=== PATIENT | male | born 1990 | race Caucasian/White ===

== ENCOUNTER 2020-01-27 20:04 | Emergency (ER) | payer SELFPAY ==
[2020-01-27] MEDS ORDERED: IBUPROFEN 400 MG TAB ONE (20:38)
[2020-01-27] MEDS ORDERED: HYDROCODONE/APAP 5/325 MG TAB ONE (20:38)
--- NOTE | 2020-01-27 21:16 | RAD REPORT ---
EXAM DESCRIPTION: RAD - Finger-Thumb Right - 01/27/2020 9:04 pm CLINICAL HISTORY: SMASH INJURY COMPARISON: No comparisons FINDINGS: No acute fracture or subluxation seen. Mild soft tissue swelling is evident. Old traumatic deformity of the fourth metacarpal seen.
--- NOTE | 2020-01-27 21:23 | ER ---
Nurse's Notes [facility] Name: Tye Foreman Age: 29 yrs Sex: Male : 1990 Arrival Date: 01/27/2020 Time: 20:07 Bed 13 Private MD: Diagnosis: Contusion of finger without damage to nail-right middle Presentation: 01/26 20:09 Chief complaint: Patient states: Slammed 3rd digit of R hand in the drawer around 1700 ca1 today. Reports pain at the area. Coronavirus screen: The patient has NOT traveled to a country currently being monitored by the [facility] within the last 14 days. The patient has NOT had contact with any known and/or suspected case of coronavirus. Ebola Screen: Patient negative for fever greater than or equal to 101.5 degrees Fahrenheit, and additional compatible Ebola Virus Disease symptoms Patient denies exposure to infectious person. Patient denies travel to an Ebola-affected area in the 21 days before illness onset. No symptoms or risks identified at this time. Initial Sepsis Screen: Does the patient meet any 2 criteria? No. Patient's initial sepsis screen is negative. Does the patient have a suspected source of infection? No. Patient's initial sepsis screen is negative. Risk Assessment: Do you want to hurt yourself or someone else? Patient reports no desire to harm self or others. Onset of symptoms was January 27, 2020. 20:09 Method Of Arrival: Ambulatory ca1 20:09 Acuity: ADAM 4 ca1 Triage Assessment: 20:37 General: Appears in no apparent distress. Behavior is calm, cooperative. Pain: ls4 Complains of pain in dorsal aspect of middle phalanx of right middle finger and dorsal aspect of proximal phalanx of right middle finger Pain currently is 7 out of 10 on a pain scale. Musculoskeletal: Circulation, motion, and sensation intact. Capillary refill < 3 seconds, Range of motion: intact in all extremities, Swelling absent Reports pain in dorsal aspect of distal phalanx of right middle finger and dorsal aspect of middle phalanx of right middle finger. Injury Description: Bruise. Historical: - Allergies: 20:13 No Known Allergies; ca1 - Home Meds: 20:13 None [Active]; ca1 - PMHx: 20:13 None; ca1 - Immunization history:: Adult Immunizations up to date, Last tetanus immunization: < 5 years ago Flu vaccine is up to date. - Social history:: Smoking status: Patient reports the use of cigarette tobacco products, smokes one pack cigarettes per day. Screenin:39 Abuse screen: Denies threats or abuse. Denies injuries from another. Nutritional ls4 screening: No deficits noted. Tuberculosis screening: No symptoms or risk factors identified. Fall Risk None identified. Assessment: 20:39 General: SEE TRIAGE NOTE . ls4 21:40 Reassessment: Patient appears in no apparent distress at this time. Patient and/or ls4 family updated on plan of care and expected duration. Pain level reassessed. Patient is alert, oriented x 3, equal unlabored respirations, skin warm/dry/pink. Vital Signs: 20:09 BP 143 / 100; Pulse 80; Resp 16 S; Temp 97.8(TE); Pulse Ox 97% on R/A; Weight 90.72 kg ca1 (R); Height 6 ft. 7 in. (200.66 cm) (R); Pain 7/10; 22:06 BP 126 / 74; Pulse 74; Resp 14; Pulse Ox 100% on R/A; Pain 3/10; ls4 20:09 Body Mass Index 22.53 (90.72 kg, 200.66 cm) ca1 ED Course: 20:07 Patient arrived in ED. ag3 20:12 Triage completed. ca1 20:13 Arm band placed on right wrist. ca1 20:17 Gael Morales PA is PHCP. cp 20:17 Hamilton Naranjo MD is Attending Physician. cp 20:26 Dania Greer, KORINA is Primary Nurse. ls4 20:39 Patient has correct armband on for positive identification. Bed in low position. Call ls4 light in reach. Side rails up X 1. Ice pack to injury. 20:39 No provider procedures requiring assistance completed. Patient did not have IV access ls4 during this emergency room visit. 21:04 XRAY Finger-Thumb RIGHT: right middle finger In Process Unspecified. EDMS 22:13 Aluminum finger splint applied to dorsal aspect of middle phalanx of right middle ls4 finger and dorsal aspect of proximal phalanx of right middle finger. Administered Medications: 20:36 Drug: Ibuprofen 800 mg Route: PO; ls4 21:10 Follow up: Response: No adverse reaction; Marked relief of symptoms ls4 20:37 Drug: HYDROcodone-acetaminophen 5 mg-325 mg 1 tabs Route: PO; ls4 21:10 Follow up: Response: No adverse reaction; Marked relief of symptoms ls4 Outcome: 21:22 Discharge ordered by . cp 22:07 Discharged to home ambulatory, with family. ls4 22:07 Condition: stable 22:07 Discharge instructions given to patient, family, Instructed on discharge instructions, follow up and referral plans. medication usage, Demonstrated understanding of instructions, follow-up care, medications, Prescriptions given X 1. 22:30 Patient left the ED. lp1 Signatures: Dispatcher [employer] EDMS Maria Eugenia Webber RN RN lp1 Gael Morales PA PA cp Gomez, Alice ag3 Dania Greer, RN RN ls4 Thelma Saez RN RN ca1
--- NOTE | 2020-01-27 21:23 | EDPHYS ---
Physician Documentation [facility] Name: Tye Foreman Age: 29 yrs Sex: Male : 1990 Arrival Date: 01/27/2020 Time: 20:07 Bed 13 Private MD: ED Physician Hamilton Naranjo HPI: 01/26 20:30 This 29 yrs old Male presents to ER via Ambulatory with complaints of Finger cp Injury. 20:30 The patient or guardian reports injury, pain. The complaints affect the distal phalanx cp right middle finger. Context: resulted from a crush injury, by furniture or furniture accessory. Onset: The symptoms/episode began/occurred today. Associated signs and symptoms: Pertinent negatives: cyanosis distally, decreased sensation distally. 20:30 Severity of symptoms: in the emergency department the symptoms are unchanged, despite cp home interventions. Historical: - Allergies: 20:13 No Known Allergies; ca1 - Home Meds: 20:13 None [Active]; ca1 - PMHx: 20:13 None; ca1 - Immunization history:: Adult Immunizations up to date, Last tetanus immunization: < 5 years ago Flu vaccine is up to date. - Social history:: Smoking status: Patient reports the use of cigarette tobacco products, smokes one pack cigarettes per day. ROS: 20:35 MS/extremity: Positive for pain, swelling, tenderness, of the distal phalanx right cp middle finger, Negative for decreased range of motion, deformity. 20:35 Eyes: Negative for injury, pain, redness, and discharge. cp 20:35 Constitutional: Negative for fever. 20:35 ENT: Negative for drainage from ear(s), ear pain, sore throat, difficulty swallowing, difficulty handling secretions. 20:35 Cardiovascular: Negative for chest pain. 20:35 Respiratory: Negative for cough, shortness of breath. 20:35 Skin: Negative for rash. 20:35 Neuro: Negative for altered mental status, headache, weakness. 20:35 All other systems are negative. Exam: 20:45 Constitutional: The patient appears in no acute distress, alert, awake, well developed, cp well nourished. 20:45 Musculoskeletal/extremity: Extremities: grossly normal except: noted in the distal cp phalanx right middle finger: pain, swelling, tenderness, There is no evidence of deformity, erythema, ROM: full active range of motion, in the right middle finger, Perfusion: the extremity is normally perfused throughout, Sensation intact. Tendon exam: specific tendon testing normal through active and passive range of motion Nails: intact, no subungual hematoma noted. Vital Signs: 20:09 BP 143 / 100; Pulse 80; Resp 16 S; Temp 97.8(TE); Pulse Ox 97% on R/A; Weight 90.72 kg ca1 (R); Height 6 ft. 7 in. (200.66 cm) (R); Pain 7/10; 22:06 BP 126 / 74; Pulse 74; Resp 14; Pulse Ox 100% on R/A; Pain 3/10; ls4 20:09 Body Mass Index 22.53 (90.72 kg, 200.66 cm) ca1 Procedures: 21:45 Splinting: Splint applied to right middle finger using finger splint, applied by nurse. cp Examined by me, post splint application: neurovascular intact, Patient tolerated well. MDM: 20:17 Patient medically screened. cp 21:19 Test interpretation: by ED physician or midlevel provider: plain radiologic studies, cp xrays of right middle finger negative for fracture. 21:21 Data reviewed: vital signs, nurses notes, radiologic studies, plain films, and as a cp result, I will discharge patient. 01/26 20:26 Order name: XRAY Finger-Thumb RIGHT: right middle finger; Complete Time: 21:20 cp 01/26 21:20 Order name: Finger Splint; Complete Time: 22:06 cp Administered Medications: 20:36 Drug: Ibuprofen 800 mg Route: PO; ls4 21:10 Follow up: Response: No adverse reaction; Marked relief of symptoms ls4 20:37 Drug: HYDROcodone-acetaminophen 5 mg-325 mg 1 tabs Route: PO; ls4 21:10 Follow up: Response: No adverse reaction; Marked relief of symptoms ls4 Disposition: 21:30 Chart complete. cp 01/27 04:59 Co-signature as Attending Physician, Hamilton Naranjo MD I agree with the assessment and tw4 plan of care. Disposition: 01/27/20 21:22 Discharged to Home. Impression: Contusion of finger without damage to nail - right middle. - Condition is Stable. - Discharge Instructions: Hand Contusion. - Prescriptions for Ibuprofen 800 mg Oral Tablet - take 1 tablet by ORAL route every 8 hours As needed take with food; 30 tablet. - Medication Reconciliation Form, Thank You Letter, Antibiotic Education, Prescription Opioid Use form. - Follow up: Private Physician; When: 5 - 6 days; Reason: Worsening of condition. - Problem is new. - Symptoms have improved. Signatures: Dispatcher [employer] EDMS Maria Eugenia Webber RN RN lp1 Gael Morales PA PA cp Hamilton Naranjo MD MD tw4 Dania Greer RN RN ls4 Thelma Saez RN RN ca1 Corrections: (The following items were deleted from the chart) 01/26 22:30 21:22 01/27/2020 21:22 Discharged to Home. Impression: Contusion of finger without lp1 damage to nail - right middle. Condition is Stable. Forms are Medication Reconciliation Form, Thank You Letter, Antibiotic Education, Prescription Opioid Use. Follow up: Private Physician; When: 5 - 6 days; Reason: Worsening of condition. Problem is new. Symptoms have improved. cp
== END 2020-01-27 22:30 | disposition home or self-care (01) ==
LOC: ER 20:04
DX: S60.031A Contusion of right middle finger without damage to nail, initial encounter (principal); W23.0XXA Caught, crushed, jammed, or pinched between moving objects, initial encounter; Y93.9 Activity, unspecified; Y92.9 Unspecified place or not applicable; F17.210 Nicotine dependence, cigarettes, uncomplicated
CPT/HCPCS: 99284

== ENCOUNTER 2020-06-11 21:02 | Emergency (ER) | payer SELFPAY ==
--- OUTSIDE RECORDS SUMMARY | 2020-06-11 21:04 | XMS REPORT | Continuity of Care Document ---
:1990 Author Organization [facility] t Address [address] [place] [address] Care Team Providers Name Role Phone Sean Dominguez Attending Clinician Problems This patient has no known problems. Allergies, Adverse Reactions, Alerts This patient has no known allergies or adverse reactions. Medications This patient has no known medications. Procedures This patient has no known procedures. Encounters Start End Encounter Admission Attending Care Care Encounter Source Date/Time Date/Time Type Type Clinicians Facility Department ID 2020-03-20 2020-03-20 Emergency [place] [id number] 11:23:42 11:59:00 Denise Munoz [id number] Aaron [id number] Corinna [id number] Results This patient has no known results.
--- OUTSIDE RECORDS SUMMARY | 2020-06-11 21:05 | XMS REPORT | Summary of Care ---
:1990 Author Organization [facility] Address [address] [place] [id number] Care Team Providers Name Role Phone Pcp, Patient Does Not Have A Primary Care Provider +[id number] 0-0000 Reason for Visit Reason Comments Tooth Pain Auth/Cert Status Reason Specialty Diagnoses / Referred By Referred To Procedures Contact Contact Emergency Medicine Diagnoses [facility] [address] [place] [address] Fax: Encounter Details Date Type Department Care Team Description 03/20/2020 Emergency [facility]Emergency Denise Celeste, Dental abs cess (Primary Dx); Department EMNP Dentalgia [address] [place] [address] [address] [place] [address] [id number] [place], [place] [id number] Allergies No Known Allergiesdocumented as of this encounter (statuses as of 03/20/2020) Medications Medication Sig Dispensed Refills Start Date End Date Status penicillin v potassium Take 1 tablet 40 tablet 0 03/20/2020 Active 500 mg by mouth 4 tabletIndications: (four) times Dentalgia, Dental daily for 10 abscess days. chlorhexidine 0.12 % Swish and spit 473 mL 0 03/20/2020 Active mouthwashIndications: out 15 mL 2 Dentalgia, Dental (two) times abscess daily. ibuprofen 800 mg Take 1 tablet 30 tablet 0 03/20/2020 Active tabletIndications: by mouth every Dentalgia, Dental 8 (eight) hours abscess as needed for Pain (scale 4-6). documented as of this encounter (statuses as of 03/20/2020) Active Problems No known active problemsdocumented as of this encounter (statuses as of 03/20/2020) Social History Tobacco Use Types Packs/Day Years Used Date Never Assessed Sex Assigned at Date Recorded Not on file Job Start Date Occupation Industry Not on file Not on file Not on file Travel History Travel Start Travel End No recent travel history available. COVID-19 Exposure Response Date Recorded In the last month, have you been in contact with No / Unsure 03/20/2020 11:18 AM CDT someone who was confirmed or suspected to have Coronavirus / COVID-19? documented as of this encounter Last Filed Vital Signs Vital Sign Reading Time Taken Comments Blood Pressure 121/95 03/20/2020 11:20 AM CDT Pulse 77 03/20/2020 11:20 AM CDT Temperature 35.9 C (96.7 F) 03/20/2020 11:20 AM CDT Respiratory Rate 16 03/20/2020 11:20 AM CDT Oxygen Saturation 98% 03/20/2020 11:20 AM CDT Inhaled Oxygen Concentration - - Weight 90.7 kg (200 lb) 03/20/2020 11:20 AM CDT Height 203.2 cm (6' 8") 03/20/2020 11:20 AM CDT Body Mass Index 21.97 03/20/2020 11:20 AM CDT documented in this encounter Discharge Instructions Denise Blankenship EMNP - 03/20/2020NO LIFE-THREATENING FINDINGS ON TODAY'S EXAM. SPECIAL INSTRUCTIONS: 1. Warm salt water rinses 2. Take all antibiotics 3. May take 2 tylenol every 4 hours for pain 4. See attached information 5. You musk seek definitive care at dentist once infection resolves. FOLLOW-UP RECOMMENDATIONS: RECOMMEND FOLLOW-UP WITH A PRIMARY CARE PROVIDER OR SPECIALIST IN 2-5 DAYS, ESPECIALLY IF NO IMPROVEMENT IN SYMPTOMS. TO FOLLOW-UP WITHIN THE [facility], TRY THESE OPTIONS (CLINIC APPOINTMENTS AVAILABLE ON PCRM-YB-ICND BASIS): 1. SCHEDULE AN APPOINTMENT ONLINE AT [facility] 2. OR CALL THE [facility] ACCESS CENTER AT OR 3. OR CALL YOUR [facility] PHYSICIAN'S OFFICE DIRECTLY IF YOU ARE ALREADY AN ESTABLISHED [facility] PATIENT. OR, YOU MAY FOLLOW-UP WITH A PROVIDER OF YOUR CHOICE, SUCH : 1. A PHYSICIAN OF YOUR CHOICE 2. [facility], . LOCATIONS IN [facility] 3. [facility], [address] [place], [place]; [phone] RETURN TO ER FOR WORSENING OF SYMPTOMS. AttachmentsThe following attachments cannot be sent through Care Everywhere. Abscess, Dental (Ghanaian)Abscess, Antibiotic Treatment Only (Ghanaian)Penicillin V tablets (Ghanaian)Chlorhexidine oral rinse (Ghanaian)Ibuprofen tablets and capsules (Ghanaian)documented in this encounter Plan of Treatment Health Maintenance Due Date Last Done Comments VARICELLA VACCINES ( - 1992 2-dose childhood series) DTaP,Tdap,and Td Vaccines ( - 2002 Tdap) INFLUENZA VACCINE (Season Ended) 2020 PNEUMOCOCCAL 0-64 YEARS COMBINED Aged Out No longer eligible based on SERIES patient's age to complete this topic documented as of this encounter Results Not on filedocumented in this encounter Visit Diagnoses Diagnosis Dental abscess - Primary Periapical abscess without sinus Dentalgia Unspecified disorder of the teeth and aguilar pporting structures documented in this encounter
[2020-06-11 21:29] LABS: Absolute Lymphocytes (CBC) 1.3 K/uL (0.7-4.9); Basophils % 0.5 % (0-1.3); Hematocrit 43.5 % (39.6-49.0); Lymphocytes % 13.7 % (15.3-44.8); MPV 7.4 fL (7.6-11.3); RBC Red Blood Cell Count 4.52 M/uL (4.33-5.43)
[2020-06-11 21:43] LABS: Albumin 4.2 g/dL (3.4-5.0); Bilirubin Direct 0.3 mg/dL (0-0.2); Potassium 3.8 mmol/L (3.5-5.1); Protein, Total 7.2 g/dL (6.4-8.2)
--- NOTE | 2020-06-11 21:49 | ER ---
Nurse's Notes [facility] Name: Tye Foreman Age: 29 yrs Sex: Male : 1990 Arrival Date: 06/11/2020 Time: 21:04 Bed 8 Private MD: Diagnosis: Nausea and vomiting Presentation: 06/11 21:10 Chief complaint: Patient states: I started vomiting started 2 days ago and having on rr5 and off upper abdominal pain. denies diarrhea, fever. 21:10 Coronavirus screen: Client denies travel out of the [place] in the last 14 days. At this rr5 time, the client does not indicate any symptoms associated with coronavirus-19. Ebola Screen: Patient negative for fever greater than or equal to 101.5 degrees Fahrenheit, and additional compatible Ebola Virus Disease symptoms Patient denies exposure to infectious person. Patient denies travel to an Ebola-affected area in the 21 days before illness onset. Initial Sepsis Screen: Does the patient meet any 2 criteria? No. Patient's initial sepsis screen is negative. Does the patient have a suspected source of infection? No. Patient's initial sepsis screen is negative. Risk Assessment: Do you want to hurt yourself or someone else? Patient reports no desire to harm self or others. Onset of symptoms was June 09, 2020. 21:10 Method Of Arrival: Ambulatory rr5 21:10 Acuity: ADAM 3 rr5 Historical: - Allergies: 21:16 No Known Allergies; rr5 - Home Meds: 21:16 None [Active]; rr5 - PMHx: 21:16 None; rr5 - PSHx: 21:16 arm surgery; rr5 - Immunization history:: Adult Immunizations up to date. - Social history:: Smoking status: Patient reports the use of cigarette tobacco products, smokes one pack cigarettes per day. Reported history of juuling and/or vaping. Patient uses alcohol, on a daily basis. Patient/guardian denies using street drugs. Screenin:17 Abuse screen: Denies threats or abuse. Denies injuries from another. Nutritional rr5 screening: No deficits noted. Tuberculosis screening: No symptoms or risk factors identified. Fall Risk IV access (20 points). Total Son Fall Scale indicates No Risk (0-24 pts). Assessment: 21:17 General: Appears in no apparent distress. uncomfortable, Behavior is calm, cooperative, rr5 appropriate for age. Pain: Complains of pain in epigastric area Pain currently is 2 out of 10 on a pain scale. Quality of pain is described as aching, Pain began gradually, Is intermittent. Neuro: Level of Consciousness is awake, alert, obeys commands, Oriented to person, place, time, situation. Cardiovascular: Capillary refill < 3 seconds Patient's skin is warm and dry. Respiratory: Airway is patent Respiratory effort is even, unlabored, Respiratory pattern is regular, symmetrical. GI: Abdomen is flat, Reports upper abdominal pain, nausea, vomiting, Patient currently denies diarrhea. : No signs and/or symptoms were reported regarding the genitourinary system. EENT: No signs and/or symptoms were reported regarding the EENT system. Derm: Skin is intact, is healthy with good turgor, Skin temperature is warm. Musculoskeletal: Circulation, motion, and sensation intact. Capillary refill < 3 seconds. Vital Signs: 21:10 BP 146 / 102; Pulse 89; Resp 18; Temp 98.5; Pulse Ox 98% ; Weight 88.45 kg; Height 6 rr5 ft. 8 in. (203.20 cm); Pain 2/10; 21:59 BP 142 / 84; Pulse 86; Resp 17; Temp 98.4; Pulse Ox 98% on R/A; rv 21:10 Body Mass Index 21.42 (88.45 kg, 203.20 cm) rr5 ED Course: 21:04 Patient arrived in ED. cl3 21:06 Patite Gomez [facility]C [facility] kb 21:06 Chris Portillo MD is Attending Physician. kb 21:07 Sonny Lee, KORINA is Primary Nurse. rv 21:15 Initial lab(s) drawn, by sd, sent to lab. covid swab. Inserted saline lock: 18 gauge in rv right forearm, using aseptic technique. Blood collected. 21:16 Triage completed. rr5 21:17 Arm band placed on right wrist. EKG completed in triage. Results shown to MD. EKG rr5 completed in triage. Results shown to MD. 21:19 Patient has correct armband on for positive identification. Bed in low position. rr5 22:05 No provider procedures requiring assistance completed. IV discontinued, intact, rv bleeding controlled, No redness/swelling at site. Pressure dressing applied. Administered Medications: No medications were administered Outcome: 21:49 Discharge ordered by . swati 22:05 Discharged to home ambulatory. rv 22:05 Condition: good 22:05 Discharge instructions given to patient, Instructed on discharge instructions, follow up and referral plans. medication usage, Demonstrated understanding of instructions, follow-up care, medications, Prescriptions given X 2. 22:05 Patient left the ED. rv Addendum: 06/16/2020 15:38 Addendum: COVID-19 Result: Negative result given to RN to notify pt. Attempted to s s contact pt regarding negative COVID-19 swab results. Left voice mail. Signatures: Pattie Gomez, NURSING HOME MANAGER-C NURSING HOME MANAGER-Lilliam Michael, RN RN ss Sonny Lee RN RN rv Branden Masterson RN RN rr5 Inez Uriostegui cl3
--- NOTE | 2020-06-11 21:50 | EDPHYS ---
Physician Documentation [facility] Name: Tye Foreman Age: 29 yrs Sex: Male : 1990 Arrival Date: 06/11/2020 Time: 21:04 Bed 8 Private MD: ED Physician Chris Portillo HPI: 06/11 21:46 This 29 yrs old Male presents to ER via Ambulatory with complaints of kb Vomiting. 21:46 The patient presents to the emergency department with nausea, vomiting, abdominal pain, kb of the epigastric area, described as intermittent, and does not radiate. Onset: The symptoms/episode began/occurred yesterday. Possible causes: unknown. The symptoms are aggravated by nothing. The symptoms are alleviated by nothing. Associated signs and symptoms: Pertinent positives: abdominal pain, nausea, vomiting, Pertinent negatives: anorexia, belching, constipation, diarrhea, dysuria, fever, flatulence, GI bleeding, hematuria. Severity of symptoms: At their worst the symptoms were moderate in the emergency department the symptoms have improved. The patient has not experienced similar symptoms in the past. The patient has not recently seen a physician. Pt states he has been vomiting since yesterday with epigastric pain. States the symptoms come in waves. Had not vomited all day until approx 1700 this evening. States his mother is concerned that it could be COVID so she wanted him to come get checked out. Requests a COVID test. . Historical: - Allergies: 21:16 No Known Allergies; rr5 - Home Meds: 21:16 None [Active]; rr5 - PMHx: 21:16 None; rr5 - PSHx: 21:16 arm surgery; rr5 - Immunization history:: Adult Immunizations up to date. - Social history:: Smoking status: Patient reports the use of cigarette tobacco products, smokes one pack cigarettes per day. Reported history of juuling and/or vaping. Patient uses alcohol, on a daily basis. Patient/guardian denies using street drugs. ROS: 21:45 Constitutional: Negative for fever, chills, and weight loss, Cardiovascular: Negative kb for chest pain, palpitations, and edema, Respiratory: Negative for shortness of breath, cough, wheezing, and pleuritic chest pain, Back: Negative for injury and pain, MS/Extremity: Negative for injury and deformity, Skin: Negative for injury, rash, and discoloration, Neuro: Negative for headache, weakness, numbness, tingling, and seizure. 21:45 Abdomen/GI: Positive for abdominal pain, nausea and vomiting, Negative for diarrhea, constipation, abdominal cramps, abdominal distension, anorexia. Exam: 21:45 Constitutional: This is a well developed, well nourished patient who is awake, alert, kb and in no acute distress. Head/Face: Normocephalic, atraumatic. Chest/axilla: Normal chest wall appearance and motion. Nontender with no deformity. No lesions are appreciated. Cardiovascular: Regular rate and rhythm with a normal S1 and S2. No gallops, murmurs, or rubs. Normal PMI, no JVD. No pulse deficits. Respiratory: Lungs have equal breath sounds bilaterally, clear to auscultation and percussion. No rales, rhonchi or wheezes noted. No increased work of breathing, no retractions or nasal flaring. Back: No spinal tenderness. No costovertebral tenderness. Full range of motion. Skin: Warm, dry with normal turgor. Normal color with no rashes, no lesions, and no evidence of cellulitis. MS/ Extremity: Pulses equal, no cyanosis. Neurovascular intact. Full, normal range of motion. Neuro: Awake and alert, GCS 15, oriented to person, place, time, and situation. Cranial nerves II-XII grossly intact. Motor strength 5/5 in all extremities. Sensory grossly intact. Cerebellar exam normal. Normal gait. 21:45 Abdomen/GI: Inspection: abdomen appears normal, Bowel sounds: normal, in all quadrants, Palpation: soft, in all quadrants, mild abdominal tenderness, in the epigastric area. Vital Signs: 21:10 BP 146 / 102; Pulse 89; Resp 18; Temp 98.5; Pulse Ox 98% ; Weight 88.45 kg; Height 6 rr5 ft. 8 in. (203.20 cm); Pain 2/10; 21:59 BP 142 / 84; Pulse 86; Resp 17; Temp 98.4; Pulse Ox 98% on R/A; rv 21:10 Body Mass Index 21.42 (88.45 kg, 203.20 cm) rr5 MDM: 21:06 Patient medically screened. kb 21:45 Data reviewed: vital signs, nurses notes. Data interpreted: Pulse oximetry: on room air kb is 98 %. Interpretation: normal. Counseling: I had a detailed discussion with the patient and/or guardian regarding: the historical points, exam findings, and any diagnostic results supporting the discharge/admit diagnosis, lab results, the need for outpatient follow up, a family practitioner, to return to the emergency department if symptoms worsen or persist or if there are any questions or concerns that arise at home. 21:48 ED course: Pt tolerating PO intake. kb 06/11 21:12 Order name: Basic Metabolic Panel kb 06/11 21:12 Order name: CBC with Diff; Complete Time: 21:42 kb 06/11 21:12 Order name: Hepatic Function; Complete Time: 21:44 kb 06/11 21:12 Order name: Lipase; Complete Time: 21:44 kb 06/11 21:12 Order name: COVID-19 kb 06/11 21:13 Order name: Basic Metabolic Panel; Complete Time: 21:44 EDMS 06/11 21:12 Order name: IV Saline Lock; Complete Time: 21:15 kb 06/11 21:12 Order name: Labs collected and sent; Complete Time: 21:15 kb Administered Medications: No medications were administered Disposition: 06/12 01:19 Co-signature as Attending Physician, Chris Portillo MD. [email or web address] Disposition: 06/11/20 21:49 Discharged to Home. Impression: Nausea and vomiting. - Condition is Stable. - Discharge Instructions: Nausea and Vomiting, Adult, [id number]. - Prescriptions for Bentyl 20 mg Oral Tablet - take 1 tablet by ORAL route every 6 hours As needed; 20 tablet. Zofran 4 mg Oral Tablet - take 1 tablet by ORAL route every 6 hours As needed; 20 tablet. - Medication Reconciliation Form, Thank You Letter, Antibiotic Education, Prescription Opioid Use form. - Follow up: Emergency Department; When: As needed; Reason: Worsening of condition. Follow up: Private Physician; When: 2 - 3 days; Reason: Recheck today's complaints, Continuance of care, Re-evaluation by your physician. Signatures: Dispatcher [employer] EDOR Pattie Gomez, JBC SOL-Sonny Robles RN RN Branden Acuna RN RN rr5 Chris Portillo MD MD 7 Corrections: (The following items were deleted from the chart) 06/11 22:05 21:49 06/11/2020 21:49 Discharged to Home. Impression: Nausea and vomiting. Condition rv is Stable. Forms are Medication Reconciliation Form, Thank You Letter, Antibiotic Education, Prescription Opioid Use. Follow up: Emergency Department; When: As needed; Reason: Worsening of condition. Follow up: Private Physician; When: 2 - 3 days; Reason: Recheck today's complaints, Continuance of care, Re-evaluation by your physician. kb
[2020-06-11 22:27] VITALS: O2SAT 98
[2020-06-11 22:28] VITALS: BP 142/84; TEMP 98.4
== END 2020-06-11 22:05 | disposition home or self-care (01) ==
LOC: ER 21:02
DX: R11.2 Nausea with vomiting, unspecified (principal); Z20.828 Contact with and (suspected) exposure to other viral communicable diseases; F17.210 Nicotine dependence, cigarettes, uncomplicated
CPT/HCPCS: 36415; 80048; 80076; 83690; 85025; 99283; U0001

== ENCOUNTER 2020-06-19 21:06 | Emergency (ER) | payer SELFPAY ==
--- OUTSIDE RECORDS SUMMARY | 2020-06-19 21:09 | XMS REPORT | Continuity of Care Document ---
:1990 Author Organization [facility] t Address [address] [place] [address] Care Team Providers Name Role Phone Sean [...] Facility Department ID 2020-03-20 2020-03-20 Emergency [place] [facility] [id number] 11:23:42 11:59:00 Denise Munoz [id number] [place] [id number] [place] [id number] [id number] Results This patient has no known results.
[2020-06-19] MEDS ORDERED: NA CHLORIDE 0.9% 500 ML ONE (21:42)
[2020-06-19 21:48] LABS: Absolute Lymphocytes (CBC) 1.9 K/uL (0.7-4.9); Basophils % 0.7 % (0-1.3); Hematocrit 42.3 % (39.6-49.0); Lymphocytes % 18.2 % (15.3-44.8); MPV 7.8 fL (7.6-11.3); RBC Red Blood Cell Count 4.36 M/uL (4.33-5.43)
[2020-06-19] MEDS ORDERED: DIPHENHYDRAMINE 50 MG/ML VIAL ONE (21:54)
[2020-06-19] MEDS ORDERED: FAMOTIDINE 20 MG/2 ML VIAL IV ONE (21:54)
[2020-06-19] MEDS ORDERED: METHYLPREDNISOLONE 125 MG INJ ONE (21:54)
[2020-06-19 22:18] LABS: ALT/SGPT 21 U/L (12-78); AST/SGOT 58 U/L (15-37); Albumin 3.9 g/dL (3.4-5.0); Alkaline Phosphatase 43 U/L (45-117); BUN Blood Urea Nitrogen 12 mg/dL (7-18); Bicarbonate 32 mmol/L (21-32); Bilirubin Total 0.4 mg/dL (0.2-1.0); Glucose Level 101 mg/dL (74-106); Potassium 3.5 mmol/L (3.5-5.1); Sodium Level 143 mmol/L (136-145); Thyroid Stimulating Hormone 0.658 uIU/mL (0.360-3.740); Troponin (Emerg Dept Use Only) < 0.02 ng/mL (0.0-0.045)
[2020-06-19] MEDS ORDERED: PANTOPRAZOLE 40MG TABLET PO ONE (22:48)
[2020-06-19] MEDS ORDERED: predniSONE 20 MG TAB ONE (22:49)
--- NOTE | 2020-06-19 22:57 | EDPHYS ---
Physician Documentation [facility] Name: Tye Foreman Age: 29 yrs Sex: Male : 1990 Arrival Date: 06/19/2020 Time: 21:08 Bed 6 Private MD: Gael Santana HPI: 06/19 21:28 This 29 yrs old Male presents to ER via Ambulatory with complaints of handy Allergic Reaction, Rash, Palpitations. 21:28 The patient presents with itching, rash, of the right arm and left arm. Onset: The handy symptoms/episode began/occurred 2 day(s) ago. Associated signs and symptoms: The patient has no apparent associated signs or symptoms. Possible causes: The patient has no known obvious cause for the symptoms. At home the patient or guardian has treated the symptoms with nothing. Severity of symptoms: At their worst the symptoms were. The patient has not experienced similar symptoms in the past. Historical: - Allergies: 21:26 No Known Allergies; jd3 - Home Meds: 21:26 None [Active]; jd3 - PMHx: 21:26 Hypertension; jd3 - PSHx: 21:26 right arm surgery; jd3 - Immunization history:: Adult Immunizations up to date. - Social history:: Smoking status: Patient reports the use of cigarette tobacco products, smokes one pack cigarettes per day. ROS: 21:32 Constitutional: Negative for fever, chills, and weight loss, Eyes: Negative for injury, handy pain, redness, and discharge, ENT: Negative for injury, pain, and discharge, Neck: Negative for injury, pain, and swelling, Respiratory: Negative for shortness of breath, cough, wheezing, and pleuritic chest pain, Abdomen/GI: Negative for abdominal pain, nausea, vomiting, diarrhea, and constipation, Back: Negative for injury and pain, : Negative for injury, bleeding, discharge, and swelling, Skin: Negative for injury, rash, and discoloration, Neuro: Negative for headache, weakness, numbness, tingling, and seizure, Psych: Negative for depression, anxiety, suicide ideation, homicidal ideation, and hallucinations, Allergy/Immunology: Negative for hives, rash, and allergies, Endocrine: Negative for neck swelling, polydipsia, polyuria, polyphagia, and marked weight changes, Hematologic/Lymphatic: Negative for swollen nodes, abnormal bleeding, and unusual bruising. 21:32 Cardiovascular: Positive for palpitations. 21:32 Skin: Positive for rash, of the right arm and left arm, petechieal. Exam: 21:32 Constitutional: This is a well developed, well nourished patient who is awake, alert, handy and in no acute distress. Head/Face: Normocephalic, atraumatic. Eyes: Pupils equal round and reactive to light, extra-ocular motions intact. Lids and lashes normal. Conjunctiva and sclera are non-icteric and not injected. Cornea within normal limits. Periorbital areas with no swelling, redness, or edema. ENT: Nares patent. No nasal discharge, no septal abnormalities noted. Tympanic membranes are normal and external auditory canals are clear. Oropharynx with no redness, swelling, or masses, exudates, or evidence of obstruction, uvula midline. Mucous membranes moist. Neck: Trachea midline, no thyromegaly or masses palpated, and no cervical lymphadenopathy. Supple, full range of motion without nuchal rigidity, or vertebral point tenderness. No Meningismus. Chest/axilla: Normal chest wall appearance and motion. Nontender with no deformity. No lesions are appreciated. Cardiovascular: Regular rate and rhythm with a normal S1 and S2. No gallops, murmurs, or rubs. Normal PMI, no JVD. No pulse deficits. Respiratory: Lungs have equal breath sounds bilaterally, clear to auscultation and percussion. No rales, rhonchi or wheezes noted. No increased work of breathing, no retractions or nasal flaring. Abdomen/GI: Soft, non-tender, with normal bowel sounds. No distension or tympany. No guarding or rebound. No evidence of tenderness throughout. Back: No spinal tenderness. No costovertebral tenderness. Full range of motion. Male : Normal genitalia with no discharge or lesions. Neuro: Awake and alert, GCS 15, oriented to person, place, time, and situation. Cranial nerves II-XII grossly intact. Motor strength 5/5 in all extremities. Sensory grossly intact. Cerebellar exam normal. Normal gait. Psych: Awake, alert, with orientation to person, place and time. Behavior, mood, and affect are within normal limits. 21:32 Skin: rash can be described as nonspecific, petechieal under both upper arms and axillas. 21:40 ECG was reviewed by the Attending Physician. [facility] 22:29 Musculoskeletal/extremity: DVT Exam: No signs of deep vein thrombosis. no pain, no handy swelling, no tenderness, negative Homans' sign noted on exam, no appreciated bluish discoloration, no erythema, no increased warmth. 22:57 Cardiovascular: Rate: normal, Rhythm: regular, Pulses: no pulse deficits are handy appreciated, Heart sounds: normal, normal S1and S2, no S3 or S4, no murmur, no rub, no gallop, Edema: is not appreciated, JVD: is not appreciated. Vital Signs: 21:26 BP 138 / 84; Pulse 78; Resp 16 S; Temp 98.7(O); Pulse Ox 100% on R/A; Weight 88.45 kg jd3 (R); Height 5 ft. 8 in. (172.72 cm) (R); Pain 2/10; 22:42 Pulse 79; Resp 17 S; Pulse Ox 99% on R/A; jd3 21:26 Body Mass Index 29.65 (88.45 kg, 172.72 cm) jd3 MDM: 21:17 Patient medically screened. handy 21:34 Data reviewed: vital signs, nurses notes, lab test result(s), EKG, radiologic studies, [facility] plain films. 21:35 Differential diagnosis: Arrhythmias. Data interpreted: monitor and storage bin tender: rate is 78 handy beats/min, rhythm is regular, Pulse oximetry: on room air is 100 %. Test interpretation: by ED physician or midlevel provider: ECG, plain radiologic studies. Counseling: I had a detailed discussion with the patient and/or guardian regarding: the historical points, exam findings, and any diagnostic results supporting the discharge/admit diagnosis, lab results, radiology results, the need for outpatient follow up, for definitive care, a family practitioner. ED course: non toxic, no trauma. 06/19 21:28 Order name: CBC with Diff [facility] 06/19 21:28 Order name: Comprehensive Metabolic Panel [facility] 06/19 21:28 Order name: TSH [facility] 06/19 21:28 Order name: Troponin (emerg Dept Use Only) [facility] 06/19 21:56 Order name: CBC with Automated Diff; Complete Time: 22:29 EDNC 06/19 22:18 Order name: Comprehensive Metabolic Panel; Complete Time: 22:29 [facility] 06/19 21:35 Order name: Chest Single View XRAY [facility] 06/19 22:18 Order name: Troponin (Emerg Dept Use Only); Complete Time: 22:29 EDNC 06/19 22:18 Order name: Thyroid Stimulating Hormone; Complete Time: 22:29 EDNC 06/19 21:28 Order name: EKG; Complete Time: 21:29 [facility] 06/19 21:28 Order name: EKG - Nurse/Tech; Complete Time: :41 [facility] EC:40 Rate is 71 beats/min. Rhythm is regular. QRS [place] is Normal. NM interval is normal. QRS handy interval is normal. QT interval is normal. No Q waves. T waves are Normal. No ST changes noted. Clinical impression: NSR w/ Non-specific ST/T Changes and No evidence of ischemia. Interpreted by me. Reviewed by me. Administered Medications: 21:40 Drug: NS 0.9% 500 ml Route: IV; Rate: bolus; Site: left antecubital; jd3 22:40 Follow up: Response: No adverse reaction; IV Status: Completed infusion; IV Intake: jd3 500ml 21:51 Drug: Pepcid 20 mg Route: IVP; Site: left antecubital; jd3 22:50 Follow up: Response: No adverse reaction jd3 21:51 Drug: SOLU-Medrol 125 mg Route: IVP; Site: left antecubital; jd3 22:50 Follow up: Response: No adverse reaction jd3 21:51 Drug: Benadryl 25 mg Route: IVP; Site: left antecubital; jd3 22:50 Follow up: Response: No adverse reaction jd3 22:41 Drug: predniSONE 40 mg Route: PO; jd3 23:16 Follow up: Response: No adverse reaction jd3 Disposition: 06/19/20 22:57 Discharged to Home. Impression: Nonmedicinal substance allergy status. - Condition is Stable. - Discharge Instructions: Allergies, Adult, Allergies, [id number]. - Prescriptions for Benadryl 25 mg Oral Capsule - take 1 capsule by ORAL route every 6 hours As needed; 30 tablet. Pepcid 20 mg Oral Tablet - take 1 tablet by ORAL route every 12 hours for 10 days; 20 tablet. Prednisone 20 mg Oral Tablet - take 2 tablet by ORAL route once daily for 5 days; 10 tablet. - Medication Reconciliation Form, Thank You Letter, Antibiotic Education, Prescription Opioid Use, Work release form form. - Follow up: Private Physician; When: 2 - 3 days; Reason: Recheck today's complaints, Continuance of care, Re-evaluation by your physician. - Problem is new. - Symptoms have improved. Signatures: Dispatcher [employer] Gael Acuna MD MD cha Davies, Jonathon RN RN jd3 Corrections: (The following items were deleted from the chart) 23:28 22:57 06/19/2020 22:57 Discharged to Home. Impression: Nonmedicinal substance allergy jd3 status. Condition is Stable. Discharge Instructions: Allergies, Adult, Allergies, [id number]. Prescriptions for Benadryl 25 mg Oral Capsule - take 1 capsule by ORAL route every 6 hours As needed; 30 tablet, Pepcid 20 mg Oral Tablet - take 1 tablet by ORAL route every 12 hours for 10 days; 20 tablet, Prednisone 20 mg Oral Tablet - take 2 tablet by ORAL route once daily for 5 days; 10 tablet. and Forms are Medication Reconciliation Form, Thank You Letter, Antibiotic Education, Prescription Opioid Use. Follow up: Private Physician; When: 2 - 3 days; Reason: Recheck today's complaints, Continuance of care, Re-evaluation by your physician. Problem is new. Symptoms have improved. handy
--- NOTE | 2020-06-19 22:57 | ER ---
Nurse's Notes [facility] Name: Tye Foreman Age: 29 yrs Sex: Male : 1990 Arrival Date: 06/19/2020 Time: 21:08 Bed 6 Private MD: Diagnosis: Nonmedicinal substance allergy status Presentation: 06/19 21:20 Chief complaint: Patient states: "for the past couple of days I have had a worsening jd3 rash under my arms with on and off chest pain that has caused me to be short of breath. I was recently tested for COVID and it came back negative so I don't think it is that. the pain has gotten so bad that I have had to call into work sick a few times. my girlfriend was talking about how someone she knew had a heart attack. I just wanted to get checked out.". Coronavirus screen: The client reports previous COVID testing was negative. called about results on 06/15/2020. Ebola Screen: Patient negative for fever greater than or equal to 101.5 degrees Fahrenheit, and additional compatible Ebola Virus Disease symptoms. Onset: The symptoms/episode began/occurred at an unknown time. Anaphylaxis evaluation, no signs or symptoms of anaphylaxis were noted. Initial Sepsis Screen: Does the patient meet any 2 criteria? No. Patient's initial sepsis screen is negative. Does the patient have a suspected source of infection? No. Patient's initial sepsis screen is negative. Risk Assessment: Do you want to hurt yourself or someone else? Patient reports no desire to harm self or others. Onset of symptoms was June 15, 2020. 21:20 Method Of Arrival: Ambulatory jd3 21:20 Acuity: ADAM 3 jd3 Historical: - Allergies: 21:26 No Known Allergies; jd3 - Home Meds: 21:26 None [Active]; jd3 - PMHx: 21:26 Hypertension; jd3 - PSHx: 21:26 right arm surgery; jd3 - Immunization history:: Adult Immunizations up to date. - Social history:: Smoking status: Patient reports the use of cigarette tobacco products, smokes one pack cigarettes per day. Screenin:29 Abuse screen: Denies threats or abuse. Nutritional screening: No deficits noted. jd3 Tuberculosis screening: No symptoms or risk factors identified. Fall Risk Ambulatory Aid- None/Bed Rest/Nurse Assist (0 pts). Gait- Normal/Bed Rest/Wheelchair (0 pts) Mental Status- Oriented to own ability (0 pts). Total Son Fall Scale indicates No Risk (0-24 pts). Assessment: 21:27 General: Appears in no apparent distress. uncomfortable, Behavior is calm, cooperative, jd3 appropriate for age, anxious. Pain: Complains of pain in chest Quality of pain is described as pressure. Neuro: Level of Consciousness is awake, alert, obeys commands, Oriented to person, place, time, situation. Cardiovascular: Denies chest pain, Capillary refill < 3 seconds Patient's skin is warm and dry. Respiratory: Airway is patent Respiratory effort is even, unlabored, Respiratory pattern is regular, symmetrical, Denies cough, shortness of breath at this time. GI: Abdomen is non-distended, Abd is soft and non tender X 4 quads. Reports nausea, vomiting. : No signs and/or symptoms were reported regarding the genitourinary system. EENT: No signs and/or symptoms were reported regarding the EENT system. Derm: Skin is intact, Skin is dry, Skin is normal, Skin temperature is warm. Musculoskeletal: Circulation, motion, and sensation intact. Range of motion: intact in all extremities. 22:42 Reassessment: Patient appears in no apparent distress at this time. Patient and/or jd3 family updated on plan of care and expected duration. Pain level reassessed. Patient is alert, oriented x 3, equal unlabored respirations, skin warm/dry/pink. Patient states feeling better. 23:26 Reassessment: Patient appears in no apparent distress at this time. Patient and/or jd3 family updated on plan of care and expected duration. Pain level reassessed. Patient is alert, oriented x 3, equal unlabored respirations, skin warm/dry/pink. Patient states feeling better. Vital Signs: 21:26 BP 138 / 84; Pulse 78; Resp 16 S; Temp 98.7(O); Pulse Ox 100% on R/A; Weight 88.45 kg jd3 (R); Height 5 ft. 8 in. (172.72 cm) (R); Pain 2/10; 22:42 Pulse 79; Resp 17 S; Pulse Ox 99% on R/A; jd3 21:26 Body Mass Index 29.65 (88.45 kg, 172.72 cm) jd3 ED Course: 21:08 Patient arrived in ED. bp1 21:13 Gael Middleton MD is Attending Physician. handy 21:20 Phillip Bearden, RN is Primary Nurse. jd3 21:25 Triage completed. jd3 21:27 Arm band placed on. jd3 21:29 Patient has correct armband on for positive identification. Bed in low position. Call jd3 light in reach. Side rails up X 1. Pulse ox on. NIBP on. 21:39 Inserted saline lock: 18 gauge in left antecubital area, using aseptic technique. Blood ds4 collected. 21:41 EKG done, by ED staff, reviewed by Gael Middleton MD. jd3 21:41 TSH Sent. ds4 21:41 Comprehensive Metabolic Panel Sent. ds4 21:41 CBC with Diff Sent. ds4 21:41 Troponin (emerg Dept Use Only) Sent. ds4 23:26 No provider procedures requiring assistance completed. IV discontinued, intact, jd3 bleeding controlled, No redness/swelling at site. Pressure dressing applied. Administered Medications: 21:40 Drug: NS 0.9% 500 ml Route: IV; Rate: bolus; Site: left antecubital; jd3 22:40 Follow up: Response: No adverse reaction; IV Status: Completed infusion; IV Intake: jd3 500ml 21:51 Drug: Pepcid 20 mg Route: IVP; Site: left antecubital; jd3 22:50 Follow up: Response: No adverse reaction jd3 21:51 Drug: SOLU-Medrol 125 mg Route: IVP; Site: left antecubital; jd3 22:50 Follow up: Response: No adverse reaction jd3 21:51 Drug: Benadryl 25 mg Route: IVP; Site: left antecubital; jd3 22:50 Follow up: Response: No adverse reaction jd3 22:41 Drug: predniSONE 40 mg Route: PO; jd3 23:16 Follow up: Response: No adverse reaction jd3 Intake: 22:40 IV: 500ml; Total: 500ml. jd3 Outcome: 22:57 Discharge ordered by . hadny 23:26 Discharged to home ambulatory. jd3 23:26 Condition: stable 23:26 Discharge instructions given to patient, Instructed on discharge instructions, follow up and referral plans. medication usage, Demonstrated understanding of instructions, follow-up care, medications, Prescriptions given X 3. 23:28 Patient left the ED. jd3 Signatures: Gael Middleton MD MD cha Swanson, Donovan ds4 Phillip Bearden, RN RN jd3 Amisha Dobbs bp1
[2020-06-19 23:35] VITALS: BP 138/84; TEMP 98.7
[2020-06-19 23:37] VITALS: O2SAT 99
--- NOTE | 2020-06-20 07:50 | EKG ---
Test Date: 2020-06-19 Test Time: 21:40:12 Manufacturing Operations Manager: ISAI MEASUREMENT RESULTS: Intervals: Rate: 71 SC: 126 QRSD: 94 QT: 366 QTc: 397 Hospers: P: 65 SC: 126 QRS: 87 T: 70 INTERPRETIVE STATEMENTS: Normal sinus rhythm Nonspecific ST abnormality Abnormal ECG No previous ECG available for comparison Electronically Signed On 06-20-20 07:48:58 CDT by uLpillo Cordero
--- NOTE | 2020-06-20 11:44 | RAD REPORT ---
EXAM DESCRIPTION: RAD - Chest Single View - 06/19/2020 9:52 pm CLINICAL HISTORY: PALPITATIONS Chest pain. COMPARISON: No comparisons FINDINGS: Portable technique limits examination quality. The lungs are grossly clear. The heart is normal in size. No displaced fractures. IMPRESSION: No acute intrathoracic process suspected.
== END 2020-06-19 23:28 | disposition home or self-care (01) ==
LOC: ER 21:06
DX: R21 Rash and other nonspecific skin eruption (principal); Z91.048 Other nonmedicinal substance allergy status; I10 Essential (primary) hypertension; F17.210 Nicotine dependence, cigarettes, uncomplicated
CPT/HCPCS: 36415; 71045; 80053; 84443; 84484; 85025; 93005; 96361; 96374; 96375; 99284; J1200; J2930; J7040; J7512

== ENCOUNTER 2021-05-31 12:32 | Emergency (ER) | payer SELFPAY ==
--- OUTSIDE RECORDS SUMMARY | 2021-05-31 12:35 | XMS REPORT | Continuity of Care Document ---
:1990 Author Organization [facility] t Address [address] [place] [address] Care Team Providers Name Role Phone Sean [...] Facility Department ID 2020-03-20 2020-03-20 Emergency [place] [facility] [id number] 11:23:42 11:59:00 Denise Munoz [id number] [place] [id number] [place] [id number] [id number] Results This patient has no known results.
[2021-05-31 14:16] LABS: Absolute Lymphocytes (CBC) 1.6 K/uL (0.7-4.9); Basophils % 0.8 % (0-1.3); Hematocrit 41.7 % (39.6-49.0); MPV 6.9 fL (7.6-11.3); RBC Red Blood Cell Count 4.66 M/uL (4.33-5.43)
[2021-05-31 14:42] LABS: Blood Morphology Comment NOT SEEN (NOT SEEN); Platelet Estimate ADEQ; White Blood Cell Scan OK (OK)
--- NOTE | 2021-05-31 15:45 | RAD REPORT ---
EXAM DESCRIPTION: Unruly Single View05/31/2021 3:23 pm CLINICAL HISTORY: Cough COMPARISON: 2019 FINDINGS: The lungs appear clear of acute infiltrate. The heart is normal size IMPRESSION: No acute abnormalities displayed
--- NOTE | 2021-05-31 15:49 | EDPHYS ---
Physician Documentation [facility] Name: Tye Foreman Age: 30 yrs Sex: Male : 1990 Arrival Date: 05/31/2021 Time: 12:37 Bed 17 Private MD: ED Physician Trino Magana HPI: 05/31 15:54 This 30 yrs old Male presents to ER via Ambulatory with complaints of Cold kdr Symptoms, Fever, Sore Throat, lightheaded. 15:54 The patient reports fever, not measured (subjective), that was measured at 101 degrees kdr Fahrenheit. Onset: The symptoms/episode began/occurred gradually, 3 day(s) ago. Modifying factors: there are no obvious modifying factors. Associated signs and symptoms: Pertinent positives: arthralgias, backache, chills, cough, that is dry, decreased appetite, diarrhea, headache, myalgias, nausea, sore throat. Severity of symptoms: At their worst the symptoms were mild in the emergency department the symptoms are unchanged. The patient has not experienced similar symptoms in the past. The patient has not recently seen a physician. Historical: - Allergies: 13:26 No Known Drug Allergies; ph - Home Meds: 13:26 None [Active]; ph - PMHx: 13:26 None; ph - Immunization history:: Butch and Butch. - Social history:: Smoking status: Reported history of juuling and/or vaping. ROS: 15:54 Constitutional: Negative for weight loss -patient has had fever with a max of 101. kdr Eyes: Negative for injury, pain, redness, and discharge, Neck: Negative for injury, pain, and swelling, Cardiovascular: Negative for chest pain, palpitations, and edema, Abdomen/GI: Negative for abdominal pain, nausea, vomiting, diarrhea, and constipation, Back: Negative for injury and pain, : Negative for injury, bleeding, discharge, and swelling, MS/Extremity: Negative for injury and deformity, Skin: Negative for injury, rash, and discoloration, Neuro: Negative for headache, weakness, numbness, tingling, and seizure activity. Psych: Negative for depression, anxiety, suicide ideation, homicidal ideation, and hallucinations, Allergy/Immunology: Negative for hives, rash, and allergies, Endocrine: Negative for neck swelling, polydipsia, polyuria, polyphagia, and marked weight changes, Hematologic/Lymphatic: Negative for swollen nodes, abnormal bleeding, and unusual bruising. 15:54 Respiratory: Positive for cough, with no reported sputum, Negative for dyspnea on exertion, hemoptysis, orthopnea, pleurisy, shortness of breath, sputum production, wheezing. Exam: 15:54 Constitutional: This is a well developed, well nourished patient who is awake, alert, kdr and in no acute distress. Head/Face: Normocephalic, atraumatic. Eyes: Pupils equal round and reactive to light, extra-ocular motions intact. Lids and lashes normal. Conjunctiva and sclera are non-icteric and not injected. Cornea within normal limits. Periorbital areas with no swelling, redness, or edema. Neck: Trachea midline, no thyromegaly or masses palpated, and no cervical lymphadenopathy. Supple, full range of motion without nuchal rigidity, or vertebral point tenderness. No Meningismus. Chest/axilla: Normal chest wall appearance and motion. Nontender with no deformity. No lesions are appreciated. Cardiovascular: Regular rate and rhythm with a normal S1 and S2. No gallops, murmurs, or rubs. Normal PMI, no JVD. No pulse deficits. Respiratory: Lungs have equal breath sounds bilaterally, clear to auscultation and percussion. No rales, rhonchi or wheezes noted. No increased work of breathing, no retractions or nasal flaring. Abdomen/GI: Soft, non-tender, with normal bowel sounds. No distension or tympany. No guarding or rebound. No evidence of tenderness throughout. Back: No spinal tenderness. No costovertebral tenderness. Full range of motion. MS/ Extremity: Pulses equal, no cyanosis. Neurovascular intact. Full, normal range of motion. Neuro: Awake and alert, GCS 15, oriented to person, place, time, and situation. Cranial nerves II-XII grossly intact. Motor strength 5/5 in all extremities. Sensory grossly intact. Cerebellar exam normal. Normal gait. Psych: Awake, alert, with orientation to person, place and time. Behavior, mood, and affect are within normal limits. Vital Signs: 13:24 BP 135 / 90; Pulse 94; Resp 18; Temp 98.7; Pulse Ox 98% on R/A; Weight 90.72 kg; Height ph 6 ft. 6 in. (198.12 cm); 13:40 BP 148 / 72; Pulse 72; Resp 18; Pulse Ox 98% on R/A; ph 14:38 BP 136 / 76; Pulse 68; Resp 18; Pulse Ox 99% on R/A; ph 13:24 Body Mass Index 23.11 (90.72 kg, 198.12 cm) ph MDM: 15:48 Patient medically screened. kdr 15:54 Data reviewed: vital signs, nurses notes, lab test result(s), radiologic studies. kdr Counseling: I had a detailed discussion with the patient and/or guardian regarding: the historical points, exam findings, and any diagnostic results supporting the discharge/admit diagnosis, lab results, radiology results, the need for outpatient follow up. 05/31 13:48 Order name: CBC with Diff; Complete Time: 14:46 kdr 05/31 13:48 Order name: Chem 7; Complete Time: 14:46 [facility] 05/31 13:48 Order name: Flu; Complete Time: 15:06 [facility] 05/31 13:48 Order name: Strep; Complete Time: 15:06 [facility] 05/31 14:42 Order name: CBC Smear Scan; Complete Time: 14:46 EDMS 05/31 15:01 Order name: Throat Culture EDMS 05/31 15:05 Order name: CXR XRAY [facility] 05/31 15:09 Order name: SARS-COV-2 RT PCR; Complete Time: 15:43 EDMS Administered Medications: No medications were administered Disposition Summary: 05/31/21 15:48 Discharge Ordered Location: Home kdr Problem: new kdr Symptoms: have improved kdr Condition: Stable kdr Diagnosis - Acute upper respiratory infection, unspecified kdr - Viral illness, Covid, pharyngitis kdr Followup: kdr - With: Private Physician - When: 2 - 3 days - Reason: If symptoms return, Further diagnostic work-up, Recheck today's complaints, Continuance of care, Re-evaluation by your physician Discharge Instructions: - Discharge Summary Sheet kdr - Upper Respiratory Infection, Adult, [id number] kdr - Viral Respiratory Infection, [id number] kdr - COVID-19 kdr Forms: - Medication Reconciliation Form kdr - Thank You Letter kdr - Work release form ld1 Prescriptions: - Tessalon Perles 100 mg Oral Capsule - take 1 capsule by ORAL route every 8 hours As needed; 20 capsule; Refills: 0, kdr Product Selection Permitted Signatures: Dispatcher [employer] EDTrino Hwang MD MD kdr Hall, Patricia, RN RN ph Corrections: (The following items were deleted from the chart) 14:14 13:48 CORONAVIRUS+BRZ ordered. EDMS EDMS
--- NOTE | 2021-05-31 15:49 | ER ---
Nurse's Notes [facility] Name: Tye Foreman Age: 30 yrs Sex: Male : 1990 Arrival Date: 05/31/2021 Time: 12:37 Bed 17 Private MD: Diagnosis: Acute upper respiratory infection, unspecified;Viral illness, Covid, pharyngitis Presentation: 05/31 13:24 Chief complaint: Patient states: Dizziness, fatigue, sore throat, low grade fever and ph chills, symptoms began approx 3 days ago. Coronavirus screen: chills, diarrhea, fatigue, fever, sore throat, Client presents with at least one sign or symptom that may indicate coronavirus-19. Standard/surgical mask placed on the client. Provider contacted for isolation considerations. Ebola Screen: No symptoms or risks identified at this time. Initial Sepsis Screen: Does the patient meet any 2 criteria? No. Patient's initial sepsis screen is negative. Does the patient have a suspected source of infection? No. Patient's initial sepsis screen is negative. Risk Assessment: Do you want to hurt yourself or someone else? Patient reports no desire to harm self or others. Onset of symptoms was May 31, 2021. 13:24 Method Of Arrival: Ambulatory ph 13:24 Acuity: ADAM 4 ph Historical: - Allergies: 13:26 No Known Drug Allergies; ph - Home Meds: 13:26 None [Active]; ph - PMHx: 13:26 None; ph - Immunization history:: Butch and Butch. - Social history:: Smoking status: Reported history of juuling and/or vaping. Screenin:40 Abuse screen: Denies threats or abuse. Denies injuries from another. Nutritional ph screening: No deficits noted. Tuberculosis screening: No symptoms or risk factors identified. Fall Risk None identified. Assessment: 13:40 General: Appears in no apparent distress. comfortable, Behavior is calm, cooperative, ph appropriate for age. Pain: Denies pain. Neuro: Level of Consciousness is awake, alert, obeys commands, Oriented to person, place, time, situation. Cardiovascular: Capillary refill < 3 seconds Patient's skin is warm and dry. Respiratory: Airway is patent Respiratory effort is even, unlabored, Respiratory pattern is regular, symmetrical, Breath sounds are clear bilaterally. GI: Abdomen is flat, non-distended. : No signs and/or symptoms were reported regarding the genitourinary system. EENT: Throat is pink Reports nasal congestion. Derm: No signs and/or symptoms reported regarding the dermatologic system. Musculoskeletal: No signs and/or symptoms reported regarding the musculoskeletal system. 14:38 Reassessment: Patient appears in no apparent distress at this time. No changes from ph previously documented assessment. Patient and/or family updated on plan of care and expected duration. Pain level reassessed. Patient is alert, oriented x 3, equal unlabored respirations, skin warm/dry/pink. Vital Signs: 13:24 BP 135 / 90; Pulse 94; Resp 18; Temp 98.7; Pulse Ox 98% on R/A; Weight 90.72 kg; Height ph 6 ft. 6 in. (198.12 cm); 13:40 BP 148 / 72; Pulse 72; Resp 18; Pulse Ox 98% on R/A; ph 14:38 BP 136 / 76; Pulse 68; Resp 18; Pulse Ox 99% on R/A; ph 13:24 Body Mass Index 23.11 (90.72 kg, 198.12 cm) ph ED Course: 12:37 Patient arrived in ED. am2 13:25 Triage completed. ph 13:26 Arm band placed on Patient placed in an exam room, on a stretcher. ph 13:34 Jihan Angel, RN is Primary Nurse. ph 13:40 Patient has correct armband on for positive identification. Placed in gown. Bed in low ph position. Call light in reach. Side rails up X2. Pulse ox on. NIBP on. Door closed. Noise minimized. Warm blanket given. 13:40 No provider procedures requiring assistance completed. ph 13:47 Trino Magana MD is Attending Physician. kdr 14:39 Primary Nurse role handed off by Jihan Angel, RN ld1 14:39 Ada Blount, KORINA is Primary Nurse. ld1 15:22 CXR XRAY In Process Unspecified. EDMS 16:00 IV discontinued, intact, bleeding controlled, No redness/swelling at site. ld1 Administered Medications: No medications were administered Outcome: 15:48 Discharge ordered by . kdr 16:00 Discharged to home ambulatory. ld1 16:00 Condition: stable 16:00 Discharge instructions given to patient, Instructed on discharge instructions, follow up and referral plans. medication usage, Demonstrated understanding of instructions, follow-up care, medications. 16:01 Patient left the ED. ld1 Signatures: Dispatcher [employer] EDMS Trino Magana MD MD [facility] Jihan Angel RN RN Bonnie Duarte [facility] Ada Blount RN RN ld1
[2021-05-31 16:58] VITALS: TEMP 98.7
[2021-05-31 17:01] VITALS: BP 136/76; O2SAT 99
== END 2021-05-31 16:01 | disposition home or self-care (01) ==
LOC: ER 12:32
DX: U07.1 COVID-19 (principal); J06.9 Acute upper respiratory infection, unspecified
CPT/HCPCS: 36415; 71045; 80048; 85025; 87070; 87081; 87804; 99283; U0003

== ENCOUNTER 2021-10-02 16:39 | Emergency (ER) | payer SELFPAY ==
--- OUTSIDE RECORDS SUMMARY | 2021-10-02 16:43 | XMS REPORT | Continuity of Care Document ---
:[address] [facility] t Address [address] [place] [address] Care Team Providers Name Role Phone Sean Dominguez Attending Clinician Sean CHOWDHURY Attending Clinician Unavailable Problems Condition Condition Condition Status Onset Resolution Last Treating Co mments Source Name Details Category Date Date Treatment Clinician Date No known No known Disease Unive rs active active ity of problems problems [facility] Allergies, Adverse Reactions, Alerts Allergy Allergy Status Severity Reaction(s) Onset Inactive Treating Comm ents Source Name Type Date Date Clinician NO KNOWN Drug Active Univers ALLERGIE Class ity of S [facility] Social History Social Habit Start Date Stop Date Quantity Comments Source Sex Assigned At [facility] Exposure to SARS-CoV-2 Not sure [facility] [place] (event) [facility] Smoking Status Start Date Stop Date Source Unknown if ever smoked Universit y of [facility] Medications Ordered Filled Start Stop Current Ordering Indication Dosage Frequency Signature Comments Components Source Medication Medication Date Date Medication? Clinician (SIG) Name Name ibuprofen 2020-0 Yes [id number] 800mg Take 1 Univers 800 mg 5-09 tablet by ity of tablet 00:00: mouth [place] 00 every 8 Medical (eight) Branch hours as needed for Pain (scale 4-6). chlorhexidi 2020-0 Yes [id number] 15mL Swish and Univers ne 0.12 % 5-09 spit out ity of mouthwash 00:00: 15 mL 2 [place] 00 (two) Medical times Branch daily. penicillin 2020-0 2020- No [id number] 500mg Take 1 Univers v potassium 5-09 05-20 tablet by it y of 500 mg 00:00: 04:59 mouth 4 [place] tablet 00 :00 (four) Medical times [place] daily for 10 days. Vital Signs Vital Name Observation Time Observation Value Comments Source Systolic blood 2020-03-20 16:20:00 121 mm[Hg] Univer sity of pressure [facility] Diastolic blood 2020-03-20 16:20:00 95 mm[Hg] Unive rsity of [facility] Heart rate 2020-03-20 16:20:00 77 /min Universi ty of [facility] Body temperature 2020-03-20 16:20:00 35.94 Amy Univ ersity of [facility] Respiratory rate 2020-03-20 16:20:00 16 /min [facility] Body height 2020-03-20 16:20:00 203.2 cm Universi ty of [facility] Body weight 2020-03-20 16:20:00 90.719 kg Universi ty of [facility] BMI 2020-03-20 16:20:00 21.97 kg/m2 Universi ty of [facility] Oxygen saturation in 2020-03-20 16:20:00 98 /min University of Arterial blood by [employer] Pulse oximetry Branch Systolic blood 2020-03-20 16:20:00 121 mm[Hg] Univer sity of [facility] Diastolic blood 2020-03-20 16:20:00 95 mm[Hg] Unive rsity of pressure [facility] Heart rate 2020-03-20 16:20:00 77 /min Universi ty of [facility] Body temperature 2020-03-20 16:20:00 35.94 Amy [facility] Respiratory rate 2020-03-20 16:20:00 16 /min Univ [facility] Body height 2020-03-20 16:20:00 203.2 cm [facility] [place] [facility] [place] Body weight 2020-03-20 16:20:00 90.719 kg [facility] [place] [facility] [place] BMI 2020-03-20 16:20:00 21.97 kg/m2 [facility] [place] [facility] Oxygen saturation in 2020-03-20 16:20:00 98 /min University of Arterial blood by [employer] [place] Pulse oximetry Branch Procedures This patient has no known procedures. Encounters Start End Encounter Admission Attending Care Care Encounter Source Date/Time Date/Time Type Type Clinicians Facility Department ID 2020-03-20 2020-03-20 Emergency [facility] [id number] 11:23:42 11:59:00 Justine Munoz [id number] [place] [id number] [place] [id number] [facility] 2020-03-20 2020-03-20 Emergency [facility] [id number] Univers 11:23:42 11:59:00 Justine Munoz [id number] i ty of [place] [id number] [facility] [id number] [place] [address] Branch 2020-03-20 2020-03-20 Emergency X [facility] ERT [id number] Univers 11:23:42 11:23:42 JUSTINE rincon of [facility] Results This patient has no known results.
[2021-10-02 18:00] LABS: Basophils % 0.6 % (0-1.3); Hematocrit 40.6 % (39.6-49.0); Lymphocytes % 20.3 % (15.3-44.8)
[2021-10-02 18:12] LABS: Albumin 4.1 g/dL (3.4-5.0); BUN Blood Urea Nitrogen 15 mg/dL (7-18); Bicarbonate 28 mmol/L (21-32); Magnesium 1.9 mg/dL (1.8-2.4); Potassium 4.1 mmol/L (3.5-5.1); Sodium Level 140 mmol/L (136-145)
[2021-10-02 18:14] LABS: Protime INR 1.02
[2021-10-02 18:20] LABS: ALT/SGPT 33 U/L (12-78); AST/SGOT 30 U/L (15-37); Alkaline Phosphatase 61 U/L (45-117); Bilirubin Direct 0.2 mg/dL (0-0.2); Bilirubin Total 0.9 mg/dL (0.2-1.0); Glucose Level 85 mg/dL (74-106); NT PRO-BNP 14 pg/mL (<125); Protein, Total 7.3 g/dL (6.4-8.2); Troponin (Emerg Dept Use Only) < 0.02 ng/mL (0.0-0.045)
--- NOTE | 2021-10-02 18:27 | RAD REPORT ---
EXAM DESCRIPTION: RAD - Chest Single View - 10/02/2021 5:57 pm CLINICAL HISTORY: CHEST PAIN COMPARISON: May 2021 TECHNIQUE: AP portable chest image was obtained 10/02/2021 5:57 pm . FINDINGS: Lungs are clear. Heart and vasculature are normal. No measurable pleural effusion and no p neumothorax. No acute bony abnormality seen. No acute aortic findings suspected. IMPRESSION: No acute cardiopulmonary process. No significant change from comparison study.
[2021-10-02] MEDS ORDERED: KETOROLAC 30 MG/ML INJ ONE (19:06)
--- NOTE | 2021-10-02 19:06 | ER ---
Nurse's Notes [facility] Name: Tye Foreman Age: 31 yrs Sex: Male : 1990 Arrival Date: 10/02/2021 Time: 16:48 Bed 16 Private MD: Diagnosis: Acute pericarditis, unspecified Presentation: 10/02 16:59 Chief complaint: Patient states: Today around 0730 pt work up with Left hand tingling vg1 and then at 1000 pt states felt heaviness in chest, denies radiation to arm. States nausea and dizziness. States chest heaviness comes an goes. Coronavirus screen: Vaccine status: Patient reports receiving the 1st dose of the Covid vaccine. Client denies travel out of the [place] in the last 14 days. Ebola Screen: Patient negative for fever greater than or equal to 101.5 degrees Fahrenheit, and additional compatible Ebola Virus Disease symptoms. Initial Sepsis Screen: Does the patient meet any 2 criteria? No. Patient's initial sepsis screen is negative. Does the patient have a suspected source of infection? No. Patient's initial sepsis screen is negative. Risk Assessment: Do you want to hurt yourself or someone else? Patient reports no desire to harm self or others. Onset of symptoms was October 02, 2021. 16:59 Method Of Arrival: Ambulatory vg1 16:59 Acuity: ADAM 3 vg1 Triage Assessment: 17:03 General: Appears in no apparent distress. comfortable, Behavior is calm, cooperative. vg1 Pain: Denies pain. Historical: - Allergies: 17:03 No Known Allergies; vg1 - Home Meds: 17:03 None [Active]; vg1 - PMHx: 17:03 Hypertension; vg1 - PSHx: 17:03 None; vg1 - Immunization history:: Client reports receiving the Butch \T\ Butch single-dose vaccine. - Social history:: Smoking status: Reported history of juuling and/or vaping. Screenin:42 Abuse screen: Denies threats or abuse. Nutritional screening: No deficits noted. as6 Tuberculosis screening: No symptoms or risk factors identified. Fall Risk None identified. Assessment: 17:40 General: Appears in no apparent distress. comfortable, Behavior is calm, cooperative. as6 Pain: Denies pain. Neuro: Level of Consciousness is awake, alert, obeys commands, Oriented to person, place, time, situation, Reports dizziness, headache numbness in left hand weakness. Cardiovascular: Reports chest pain, Capillary refill < 3 seconds Patient's skin is warm and dry. Respiratory: Airway is patent Trachea midline Respiratory effort is even, unlabored, Respiratory pattern is regular, symmetrical. Derm: Skin is intact, is healthy with good turgor. Vital Signs: 16:59 BP 147 / 92; Pulse 80; Resp 16; Temp 97.7; Pulse Ox 98% ; Weight 90.72 kg; Height 6 ft. vg1 8 in. (203.20 cm); Pain 0/10; 18:35 BP 149 / 81; Pulse 62; Resp 18 S; Pulse Ox 99% on R/A; as6 16:59 Body Mass Index 21.97 (90.72 kg, 203.20 cm) vg1 ED Course: 16:48 Patient arrived in ED. mr 17:03 Triage completed. vg1 17:03 Arm band placed on. vg1 17:20 Jose Miguel Walsh, KORINA is Primary Nurse. as6 17:21 Chandler Ayala PA is PHCP. [facility] 17:21 Kevin Iglesias MD is Attending Physician. [facility] 17:42 Bed in low position. Call light in reach. Side rails up X 1. Adult w/ patient. Pulse ox as6 on. NIBP on. 17:57 XRAY Chest (1 view) In Process Unspecified. EDDC 18:03 D-Dimer Sent. mh5 18:03 Basic Metabolic Panel Sent. 5 18:04 LFT's Sent. 5 18:04 Magnesium Sent. 5 18:04 NT PRO-BNP Sent. 5 18:04 PT-INR Sent. 5 18:04 Troponin (emerg Dept Use Only) Sent. 5 18:05 Inserted saline lock: 18 gauge in left antecubital area, using aseptic technique. Blood as6 collected. 19:05 Lupillo Cordero MD is Referral Physician. [facility] 19:17 No provider procedures requiring assistance completed. IV discontinued, intact, as6 bleeding controlled, No redness/swelling at site. Pressure dressing applied. Administered Medications: 19:10 Drug: Ketorolac 30 mg Route: IVP; Site: left antecubital; as6 19:10 Follow up: Response: No adverse reaction as6 Outcome: 19:05 Discharge ordered by MD. schmitt 19:17 Discharged to home ambulatory, with significant other. as6 19:17 Condition: stable 19:17 Discharge instructions given to patient, significant other, Instructed on discharge instructions, follow up and referral plans. medication usage, Demonstrated understanding of instructions, follow-up care, medications, Prescriptions given X 1. 19:18 Patient left the ED. as6 Signatures: Dispatcher [employer] EDMS Chandler Ayala PA PA jmm Rivera, Mary mr Martinez, Anna [facility] Jacquie Alas, RN RN vg1 Jose Miguel Walsh, RN RN as6
--- NOTE | 2021-10-02 19:06 | EDPHYS ---
Physician Documentation [facility] Name: Tye Foreman Age: 31 yrs Sex: Male : 1990 Arrival Date: 10/02/2021 Time: 16:48 Bed 16 Private MD: ED Physician Kevin Iglesias HPI: 10/02 17:45 This 31 yrs old Male presents to ER via Ambulatory with complaints of Arm Numbness. jmm 17:45 The patient or guardian reports chest pain that is located primarily in the [facility]al [facility]. The pain radiates to the left arm. Associated signs and symptoms: Pertinent positives: shortness of breath. The chest pain is described as aching, a pressure. Duration: The patient or guardian reports multiple episodes. Modifying factors: The symptoms are alleviated by nothing. the symptoms are aggravated by nothing. The patient has not experienced similar symptoms in the past. Historical: - Allergies: 17:03 No Known Allergies; vg1 - Home Meds: 17:03 None [Active]; vg1 - PMHx: 17:03 Hypertension; vg1 - PSHx: 17:03 None; vg1 - Immunization history:: Client reports receiving the Butch \T\ Butch single-dose vaccine. - Social history:: Smoking status: Reported history of juuling and/or vaping. ROS: 17:45 Constitutional: Negative for fever, chills, and weight loss. jmm 17:45 Cardiovascular: Positive for chest pain. 17:45 Respiratory: Positive for shortness of breath. 17:45 All other systems are negative. Exam: 17:45 Constitutional: This is a well developed, well nourished patient who is awake, alert, jmm and in no acute distress. Head/Face: atraumatic. Eyes: EOMI, no conjunctival erythema appreciated ENT: Moist Mucus Membranes Neck: Trachea midline, Supple Chest/axilla: Normal chest wall appearance and motion. 17:45 Abdomen/GI: Non distended, soft Back: Normal ROM Skin: General appearance color normal MS/ Extremity: Moves all extremities, no obvious deformities appreciated, no edema noted to the lower extremities Neuro: Awake and alert, normal gait Psych: Behavior is normal, Mood is normal, Patient is cooperative and pleasant 17:45 Cardiovascular: Rate: normal, Rhythm: regular. 17:45 Respiratory: the patient does not display signs of respiratory distress, Respirations: normal, Breath sounds: are clear throughout. Vital Signs: 16:59 BP 147 / 92; Pulse 80; Resp 16; Temp 97.7; Pulse Ox 98% ; Weight 90.72 kg; Height 6 ft. vg1 8 in. (203.20 cm); Pain 0/10; 18:35 BP 149 / 81; Pulse 62; Resp 18 S; Pulse Ox 99% on R/A; as6 16:59 Body Mass Index 21.97 (90.72 kg, 203.20 cm) vg1 MDM: 17:45 [facility] medically screened. [facility] 19:04 Data reviewed: vital signs, nurses notes, lab test result(s), EKG, radiologic studies, [facility] plain films. ED course: EKG is concerning for pericarditis. Will treat with oral anti-inflammatories and advised patient follow-up with cardiology for further evaluation. Patient otherwise advised not to perform strenuous activity until cleared by cardiology. Patient understood agrees plan of care.. 10/02 17:45 Order name: Basic Metabolic Panel; Complete Time: 18:23 10/02 17:45 Order name: CBC with Diff; Complete Time: 18:16 10/02 17:45 Order name: LFT's; Complete Time: 18:23 10/02 17:45 Order name: Magnesium; Complete Time: 18:23 10/02 17:45 Order name: NT PRO-BNP; Complete Time: 18:23 10/02 17:45 Order name: PT-INR; Complete Time: 18:16 10/02 17:45 Order name: Troponin (emerg Dept Use Only); Complete Time: 18:23 10/02 17:45 Order name: XRAY Chest (1 view); Complete Time: 18:36 10/02 17:45 Order name: EKG; Complete Time: 17:45 10/02 17:45 Order name: Cardiac monitoring; Complete Time: 18:03 10/02 17:45 Order name: EKG - Nurse/Tech; Complete Time: 18:03 10/02 17:45 Order name: IV Saline Lock; Complete Time: 18:03 10/02 17:45 Order name: D-Dimer; Complete Time: 18:16 21 17:45 Order name: Labs collected and sent; Complete Time: 18:03 as6 10/02 17:45 Order name: O2 Per Protocol; Complete Time: 18:03 6 10/02 17:45 Order name: O2 Sat Monitoring; Complete Time: 18:04 as6 Administered Medications: 19:10 Drug: Ketorolac 30 mg Route: IVP; Site: left antecubital; as6 19:10 Follow up: Response: No adverse reaction as6 Disposition Summary: 10/02/21 19:05 Discharge Ordered Location: [facility] Condition: Stable jmm Diagnosis - Acute pericarditis, unspecified jmm Followup: [facility] - With: Lupillo Cordero MD - When: 2 - 3 days - Reason: Recheck today's complaints, Continuance of care, Re-evaluation by your physician Discharge Instructions: - Discharge Summary Sheet [facility] - [facility]ic[facility]itis [facility] Forms: - Medication Reconciliation Form [facility] - Thank You Letter [facility] - Antibiotic Education [facility] - Prescription Opioid Use [facility] - Work release form as6 Prescriptions: - Ibuprofen 800 mg Oral Tablet - take 1 tablet by ORAL route every 8 hours As needed take with food; 30 tablet; [facility] Refills: 0, Product Selection Permitted Addendum: 10/05/2021 07:08 Co-signature as Attending Physician, Kevin Iglesias MD I agree with the assessment and r n plan of care. Attestation: The patient's history, exam findings, diagnostics, and a summary of any interventions or procedures was reviewed in detail with Chandler NORRIS. Signatures: Dispatcher [employer] Chandler Chinchilla PA PA jmm Nieto, Roman, MD MD rn Garcia, Victoria RN RN vg1 Jose Miguel Walsh, KORINA RN as6
[2021-10-02 19:30] VITALS: TEMP 97.7
[2021-10-02 19:32] VITALS: BP 149/81; O2SAT 99
--- NOTE | 2021-10-05 08:11 | EKG ---
Test Date: 2021-10-02 Test Time: 18:03:05 Manager Lean: MEASUREMENT RESULTS: Intervals: Rate: 60 VA: 130 QRSD: 100 QT: 390 QTc: 390 [place]: P: 71 VA: 130 QRS: 85 T: 71 INTERPRETIVE STATEMENTS: Normal sinus rhythm with sinus arrhythmia Early repolarization Normal ECG Compared to ECG 06/19/2020 21:40:12 Early repolarization now present ST (T wave) deviation no longer present Electronically Signed On 10-05-21 08:04:09 INTENSIVE CARE MEDICINE SPECIALIST by Lupillo Cordero
== END 2021-10-02 19:18 | disposition home or self-care (01) ==
LOC: ER 16:39
DX: I30.9 Acute pericarditis, unspecified (principal); I10 Essential (primary) hypertension
CPT/HCPCS: 36415; 71045; 80048; 80076; 83735; 83880; 84484; 85025; 85379; 85610; 93005; 96374; 99284

== ENCOUNTER 2021-10-11 10:18 | Emergency (ER) | payer SELFPAY ==
--- OUTSIDE RECORDS SUMMARY | 2021-10-11 10:22 | XMS REPORT | Continuity of Care Document ---
:1990 Author Organization [facility] t Address [address] [place] [address] Care Team Providers Name Role Phone Sean Dominguez Attending Clinician Sean CHOWDHURY Attending Clinician Unavailable Problems Condition Condition Condition Status Onset Resolution Last Treating Co mments Source Name Details Category Date Date Treatment Clinician Date No known No known Disease Unive rs active active ity of problems problems [facility] Allergies, Adverse Reactions, Alerts Allergy Allergy Status Severity Reaction(s) Onset Inactive Treating Comm ents Source Name Type Date Date Clinician NO KNOWN Drug Active Univers ALLERGIE Class ity of S [facility] Social History Social Habit Start Date Stop Date Quantity Comments Source Sex Assigned At Uni versity of [facility] Exposure to SARS-CoV-2 Not sure [facility] [place] (event) [facility] Smoking Status Start Date Stop Date Source Unknown if ever smoked Universit y of [facility] Medications Ordered Filled Start Stop Current Ordering Indication Dosage Frequency Signature Comments Components Source Medication Medication Date Date Medication? Clinician (SIG) Name Name ibuprofen 2020-0 Yes [id number] 800mg Take 1 Univers 800 mg 5-09 tablet by ity of tablet 00:00: mouth [place] 00 every 8 Medical (eight) Branch hours as needed for Pain (scale 4-6). chlorhexidi 2020-0 Yes [id number] 15mL Swish and Univers ne 0.12 % 5-09 spit out ity of mouthwash 00:00: 15 mL 2 [place] 00 (two) Medical times Branch daily. penicillin 2020-0 2020- No [id number] 500mg Take 1 Univers v potassium 5-09 05-20 tablet by it y of 500 mg 00:00: 04:59 mouth 4 [place] tablet 00 :00 (four) Medical times Branch daily for 10 days. Vital Signs Vital Name Observation Time Observation Value Comments Source Systolic blood 2020-03-20 16:20:00 121 mm[Hg] Univer sity of pressure [facility] Diastolic blood 2020-03-20 16:20:00 95 mm[Hg] Unive rsity of [facility] Heart rate 2020-03-20 16:20:00 77 /min Universi ty of [facility] Body temperature 2020-03-20 16:20:00 35.94 Amy Univ ersity of [facility] Respiratory rate 2020-03-20 16:20:00 16 /min Univ ersity of [facility] Body height 2020-03-20 16:20:00 203.2 cm Universi ty of [facility] Body weight 2020-03-20 16:20:00 90.719 kg Universi ty of [facility] BMI 2020-03-20 16:20:00 21.97 kg/m2 Universi ty of [facility] Oxygen saturation in 2020-03-20 16:20:00 98 /min University of Arterial blood by [place] [place] Pulse oximetry Branch Systolic blood 2020-03-20 16:20:00 121 mm[Hg] Univer sity of pressure [facility] Diastolic blood 2020-03-20 16:20:00 95 mm[Hg] Unive rsity of pressure [facility] Heart rate 2020-03-20 16:20:00 77 /min Universi ty of [facility] Body temperature 2020-03-20 16:20:00 35.94 Amy Univ ersity [facility] Respiratory rate 2020-03-20 16:20:00 16 /min Univ ersity of [facility] Body height 2020-03-20 16:20:00 203.2 cm [facility]i ty [facility] [place] [facility] [place] Body weight 2020-03-20 16:20:00 90.719 kg [facility] [place] [facility] BMI 2020-03-20 16:20:00 21.97 kg/m2 [facility] [place] [facility] Oxygen saturation in 2020-03-20 16:20:00 98 /min University of Arterial blood by [employer] [place] Pulse oximetry Branch Procedures This patient has no known procedures. Encounters Start End Encounter Admission Attending Care Care Encounter Source Date/Time Date/Time Type Type Clinicians Facility Department ID 2020-03-20 2020-03-20 Emergency [facility] [id number] 11:23:42 11:59:00 Denise Munoz [id number] [place] [id number] [place] [id number] [facility] 2020-03-20 2020-03-20 Emergency [facility] [id number] Univers 11:23:42 11:59:00 Denise Munoz [id number] i ty of [place] [id number] [facility] [id number] [place] [address] Branch 2020-03-20 2020-03-20 Emergency X [facility] ERT [id number] Univers 11:23:42 11:23:42 DENISE rincon of [facility] Results This patient has no known results.
--- NOTE | 2021-10-11 11:43 | ER ---
Nurse's Notes [facility] Name: Tye Foreman Age: 31 yrs Sex: Male : 1990 Arrival Date: 10/11/2021 Time: 10:24 Bed Treatment Private MD: Diagnosis: Scratched by cat Presentation: 10/11 10:33 Chief complaint: Patient states: cat scratch to R thumb. Superficial abrasion noted. No ss active bleeding noted at this time. Coronavirus screen: Client denies travel out of the [place] in the last 14 days. Ebola Screen: Patient denies exposure to infectious person. Patient denies travel to an Ebola-affected area in the 21 days before illness onset. Initial Sepsis Screen: Does the patient meet any 2 criteria? No. Patient's initial sepsis screen is negative. Does the patient have a suspected source of infection? No. Patient's initial sepsis screen is negative. Risk Assessment: Do you want to hurt yourself or someone else? Patient reports no desire to harm self or others. Note Injury occurred at 0930 today. Washed wound prior with warm soapy water. Onset of symptoms was October 11, 2021. 10:33 Method Of Arrival: Ambulatory ss 10:33 Acuity: ADAM 5 ss Historical: - Allergies: 10:36 No Known Allergies; ss - Home Meds: 10:36 None [Active]; ss - PMHx: 10:36 Hypertension; ss - PSHx: 10:36 None; ss - Immunization history:: Client reports receiving the 2nd dose of the Covid vaccine. - Social history:: Smoking status: Reported history of juuling and/or vaping. - Family history:: not pertinent. Screenin:17 Abuse screen: Denies threats or abuse. Denies injuries from another. Nutritional ss screening: No deficits noted. Tuberculosis screening: Never had TB. Fall Risk None identified. Assessment: 10:33 General: Appears in no apparent distress. comfortable, Behavior is calm, cooperative, ss Denies fever, feeling ill, fatigue, chills. Pain: Complains of pain in palmar aspect of proximal phalanx of right thumb and palmar aspect of distal phalanx of right thumb and dorsal aspect of proximal phalanx of right thumb and dorsal aspect of distal phalanx of right thumb Pain currently is 1 out of 10 on a pain scale. Quality of pain is described as tender, Is continuous. Neuro: Level of Consciousness is awake, alert, obeys commands. Cardiovascular: Capillary refill < 3 seconds is brisk. Respiratory: Airway is patent Respiratory effort is even, unlabored, Respiratory pattern is regular, symmetrical. GI: No signs and/or symptoms were reported involving the gastrointestinal system. EENT: Nares are clear. Derm: Skin is intact, is healthy with good turgor, Skin is dry, Skin is pink, warm \T\ dry. normal. Musculoskeletal: Circulation, motion, and sensation intact. Range of motion: intact in all extremities, Swelling absent. 12:17 Reassessment: Patient appears in no apparent distress at this time. Patient and/or ss family updated on plan of care and expected duration. Pain level reassessed. Patient is alert, oriented x 3, equal unlabored respirations, skin warm/dry/pink. wound cleansed, dressed. Pt verbalizes understanding discharge/ follow up instructions. Vital Signs: 10:33 BP 143 / 91; Pulse 76; Resp 16; Temp 97.9(TE); Pulse Ox 99% on R/A; Weight 90.72 kg; ss Height 6 ft. 8 in. (203.20 cm); Pain 1/10; 10:33 Body Mass Index 21.97 (90.72 kg, 203.20 cm) ED Course: 10:24 Patient arrived in ED. kc5 10:36 Triage completed. ss 10:36 Arm band placed on right wrist. 10:46 Gael Middleton MD is Attending Physician. [facility] 11:42 Harvinder Monroy MD is Referral Physician. [facility] 11:45 Lilliam Casanova RN is Primary Nurse. ss 12:17 Patient has correct armband on for positive identification. ss 12:17 No provider procedures requiring assistance completed. Patient did not have IV access ss during this emergency room visit. Administered Medications: 11:58 Drug: Tetanus-Diphtheria Toxoid Adult 0.5 ml {Client Associate: [employer]. Exp: ss 03/15/2023. Lot #: [id number]. } Route: IM; Site: left deltoid; 12:19 Follow up: Response: No adverse reaction 11:59 Drug: Neosporin (cfecswrq-ccracubert-[id number]) Ointment 1 application Route: Topical; ss Site: affected area; 11:59 Drug: Zithromax (azithromycin) 500 mg Route: PO; ss 12:18 Follow up: Response: No adverse reaction ss Outcome: 11:42 Discharge ordered by . handy 12:17 Discharged to home ambulatory. ss 12:17 Condition: good 12:17 Discharge instructions given to patient, Instructed on discharge instructions, follow up and referral plans. Demonstrated understanding of instructions, follow-up care, Prescriptions given X 3. 12:18 Patient left the ED. ss Signatures: Gael Middleton MD MD cha Smirch, Shelby, RN RN Lissette Kemp kc5
--- NOTE | 2021-10-11 11:43 | EDPHYS ---
Physician Documentation [facility] Name: Tye Foreman Age: 31 yrs Sex: Male : 1990 Arrival Date: 10/11/2021 Time: 10:24 Bed Treatment Private MD: THOMAS Physician Gael Middleton HPI: 10/11 11:39 This 31 yrs old Male presents to ER via Ambulatory with complaints of Finger handy Injury, CAT SCRATCH. 11:39 Trauma demographics: County: The injury occurred in [place] Location of Injury: The handy injury occurred at home. Mechanism of injury: cat scratch to right thumb. Associated injuries: The patient sustained dorsal aspect of distal phalanx of right thumb, dorsal aspect of proximal phalanx of right thumb, palmar aspect of distal phalanx of right thumb and palmar aspect of proximal phalanx of right thumb, abrasion, laceration, painful injury. Onset: The symptoms/episode began/occurred this morning. The patient has not experienced similar symptoms in the past. Historical: - Allergies: 10:36 No Known Allergies; ss - Home Meds: 10:36 None [Active]; ss - PMHx: 10:36 Hypertension; ss - PSHx: 10:36 None; ss - Immunization history:: Client reports receiving the 2nd dose of the Covid vaccine. - Social history:: Smoking status: Reported history of juuling and/or vaping. - Family history:: not pertinent. ROS: 11:39 Constitutional: Negative for fever, chills, and weight loss, Eyes: Negative for injury, handy pain, redness, and discharge, ENT: Negative for injury, pain, and discharge, Neck: Negative for injury, pain, and swelling, Cardiovascular: Negative for chest pain, palpitations, and edema, Respiratory: Negative for shortness of breath, cough, wheezing, and pleuritic chest pain, Abdomen/GI: Negative for abdominal pain, nausea, vomiting, diarrhea, and constipation, Back: Negative for injury and pain, : Negative for injury, bleeding, discharge, and swelling, Skin: Negative for injury, rash, and discoloration, Neuro: Negative for headache, weakness, numbness, tingling, and seizure, Psych: Negative for depression, anxiety, suicide ideation, homicidal ideation, and hallucinations, Allergy/Immunology: Negative for hives, rash, and allergies, Endocrine: Negative for neck swelling, polydipsia, polyuria, polyphagia, and marked weight changes, Hematologic/Lymphatic: Negative for swollen nodes, abnormal bleeding, and unusual bruising. 11:39 MS/extremity: Positive for laceration, pain, of the dorsal aspect of distal phalanx of right thumb, dorsal aspect of proximal phalanx of right thumb, palmar aspect of distal phalanx of right thumb and palmar aspect of proximal phalanx of right thumb. Exam: 11:39 Constitutional: This is a well developed, well nourished patient who is awake, alert, handy and in no acute distress. Head/Face: Normocephalic, atraumatic. Eyes: Pupils equal round and reactive to light, extra-ocular motions intact. Lids and lashes normal. Conjunctiva and sclera are non-icteric and not injected. Cornea within normal limits. Periorbital areas with no swelling, redness, or edema. ENT: Nares patent. No nasal discharge, no septal abnormalities noted. Tympanic membranes are normal and external auditory canals are clear. Oropharynx with no redness, swelling, or masses, exudates, or evidence of obstruction, uvula midline. Mucous membranes moist. Neck: Trachea midline, no thyromegaly or masses palpated, and no cervical lymphadenopathy. Supple, full range of motion without nuchal rigidity, or vertebral point tenderness. No Meningismus. Chest/axilla: Normal chest wall appearance and motion. Nontender with no deformity. No lesions are appreciated. Cardiovascular: Regular rate and rhythm with a normal S1 and S2. No gallops, murmurs, or rubs. Normal PMI, no JVD. No pulse deficits. Respiratory: Lungs have equal breath sounds bilaterally, clear to auscultation and percussion. No rales, rhonchi or wheezes noted. No increased work of breathing, no retractions or nasal flaring. Abdomen/GI: Soft, non-tender, with normal bowel sounds. No distension or tympany. No guarding or rebound. No evidence of tenderness throughout. Back: No spinal tenderness. No costovertebral tenderness. Full range of motion. Male : Normal genitalia with no discharge or lesions. Neuro: Awake and alert, GCS 15, oriented to person, place, time, and situation. Cranial nerves II-XII grossly intact. Motor strength 5/5 in all extremities. Sensory grossly intact. Cerebellar exam normal. Normal gait. Psych: Awake, alert, with orientation to person, place and time. Behavior, mood, and affect are within normal limits. 11:39 Skin: injury, laceration(s), the wound is approximately 5 cm(s), with a depth of .025 cm(s), of the dorsal aspect of distal phalanx of right thumb, dorsal aspect of proximal phalanx of right thumb, palmar aspect of distal phalanx of right thumb and palmar aspect of proximal phalanx of right thumb. Vital Signs: 10:33 BP 143 / 91; Pulse 76; Resp 16; Temp 97.9(TE); Pulse Ox 99% on R/A; Weight 90.72 kg; ss Height 6 ft. 8 in. (203.20 cm); Pain 1/10; 10:33 Body Mass Index 21.97 (90.72 kg, 203.20 cm) ss MDM: 10:46 Patient medically screened. handy 11:41 Data reviewed: vital signs, nurses notes. Data interpreted: cardiac monitor: not handy applicable for this patient encounter. Pulse oximetry: on room air is 99 %. Counseling: I had a detailed discussion with the patient and/or guardian regarding: the historical points, exam findings, and any diagnostic results supporting the discharge/admit diagnosis, the need for outpatient follow up, for definitive care, a family practitioner. Administered Medications: 11:58 Drug: Tetanus-Diphtheria Toxoid Adult 0.5 ml {Liquid [employer] Operator: [employer]. Exp: ss 03/15/2023. Lot #: [id number]. } Route: IM; Site: left deltoid; 12:19 Follow up: Response: No adverse reaction 11:59 Drug: Neosporin (sxfkpcxo-wjrnbitfbc-vcmqfonug) Ointment 1 application Route: Topical; Site: affected area; 11:59 Drug: Zithromax (azithromycin) 500 mg Route: PO; ss 12:18 Follow up: Response: No adverse reaction Disposition Summary: 10/11/21 11:42 Discharge Ordered Location: Home handy Problem: new handy Symptoms: have improved handy Condition: Stable handy Diagnosis - Scratched by cat handy Followup: handy - With: Private Physician - When: 2 - 3 days - Reason: Recheck today's complaints, Continuance of care, Re-evaluation by your physician Followup: [facility] - With: Harvinder Monroy MD - When: 2 - 3 days - Reason: Recheck today's complaints, Re-evaluation by your physician Discharge Instructions: - Discharge Summary Sheet [facility] - Cat-Scratch Disease, Adult handy - Laceration Care, Adult handy - Laceration Care, Adult, [id number] [facility] Forms: - Medication Reconciliation Form [facility] - Thank You Letter [facility] - Antibiotic Education [facility] - Prescription Opioid Use [facility] - Work release form Prescriptions: - Centany 2 % Topical ointment - apply 1 application by TOPICAL route 3 times per day; 15 gram; Refills: 0, [facility] Product Selection Permitted - Ibuprofen 600 mg Oral Tablet - take 1 tablet by ORAL route every 6 hours As needed take with food; 20 tablet; [facility] Refills: 0, Product Selection Permitted - Zithromax 500 mg Oral Tablet - take 1 tablet by ORAL route once daily for 4 days; 4 tablet; Refills: 0, [facility] Product Selection Permitted Signatures: Gael Middleton MD MD cha Smirch, [place], KORINA RN
[2021-10-11] MEDS ORDERED: AZITHROMYCIN 250 MG TAB ONE (11:48)
[2021-10-11] MEDS ORDERED: TETANUS & DIPHTHERIA TOX,ADULT 0.5 ML VIAL ONE (11:48)
[2021-10-11 12:24] VITALS: BP 143/91; TEMP 97.9; O2SAT 99
== END 2021-10-11 12:18 | disposition home or self-care (01) ==
LOC: ER 10:18
DX: S60.311A Abrasion of right thumb, initial encounter (principal); W55.03XA Scratched by cat, initial encounter; Y92.009 Unspecified place in unspecified non-institutional (private) residence as the place of occurrence of the external cause; Z23 Encounter for immunization
CPT/HCPCS: 90471; 90714; 99283

== ENCOUNTER 2022-02-10 12:54 | Emergency (ER) | payer SELFPAY ==
--- OUTSIDE RECORDS SUMMARY | 2022-02-10 12:57 | XMS REPORT | Continuity of Care Document ---
:1990 Author Organization [facility] t Address [address] [place] [address] Care Team Providers Name Role Phone Sean Dominguez Attending Clinician Sean CHOWDHURY Attending Clinician Unavailable Problems Condition Condition Condition Status Onset Resolution Last Treating Co mments Source Name Details Category Date Date Treatment Clinician Date No known No known Disease Unive rs active active ity of problems problems [facility] Allergies, Adverse Reactions, Alerts Allergy Allergy Status Severity Reaction(s) Onset Inactive Treating Comm ents Source Name Type Date Date Clinician NO KNOWN Drug Active Univers ALLERGIE Class ity of S [facility] Social History Social Habit Start Date Stop Date Quantity Comments Source Sex Assigned At Uni versity [facility] Exposure to SARS-CoV-2 Not sure [facility] [place] (event) [facility] Smoking Status Start Date Stop Date Source Unknown if ever smoked Universit y [facility] Medications Ordered Filled Start Stop Current Ordering Indication Dosage Frequency Signature Comments Components Source Medication Medication Date Date Medication? Clinician (SIG) Name Name ibuprofen 2020-0 Yes [id number] 800mg Take 1 Univers 800 mg 5-09 tablet by ity of tablet 00:00: mouth [place] 00 every 8 Medical (eight) Branch hours as needed for Pain (scale 4-6). chlorhexidi 2020-0 Yes [id number] 15mL Swish and Univers ne 0.12 % 5-09 spit out ity of mouthwash 00:00: 15 mL 2 [place] 00 (two) Medical times Branch daily. penicillin 2020-0 2020- No [id number] 500mg Take 1 Univers v potassium 5-09 05-20 tablet by it y of 500 mg 00:00: 04:59 mouth 4 [place] tablet 00 :00 (four) Medical times Branch daily for 10 days. Vital Signs Vital Name Observation Time Observation Value Comments Source Systolic blood 2020-03-20 16:20:00 121 mm[Hg] Univer sity of pressure [facility] Diastolic blood 2020-03-20 16:20:00 95 mm[Hg] Unive rsity of pressure [facility] Heart rate 2020-03-20 16:20:00 77 /min Universi ty of [facility] Body temperature 2020-03-20 16:20:00 35.94 Amy Univ ersity of [facility] Respiratory rate 2020-03-20 16:20:00 16 /min Univ ersity of [facility] Body height 2020-03-20 16:20:00 203.2 cm Universi ty of [facility] Body weight 2020-03-20 16:20:00 90.719 kg Universi ty of [facility] BMI 2020-03-20 16:20:00 21.97 kg/m2 Universi ty of [facility] Oxygen saturation in 2020-03-20 16:20:00 98 /min University of Arterial blood by [employer] Pulse oximetry Branch Systolic blood 2020-03-20 16:20:00 121 mm[Hg] Univer sity of [facility] Diastolic blood 2020-03-20 16:20:00 95 mm[Hg] Unive rsity of pressure [facility] Heart rate 2020-03-20 16:20:00 77 /min Universi ty of [facility] Body temperature 2020-03-20 16:20:00 35.94 Amy Univ ersity [facility] Respiratory rate 2020-03-20 16:20:00 16 /min Univ ersity of [facility] Body height 2020-03-20 16:20:00 203.2 cm [facility] [place] [facility] [place] Body weight 2020-03-20 16:20:00 90.719 kg [facility] [place] [facility] BMI 2020-03-20 16:20:00 21.97 kg/m2 [facility] [place] [facility] Oxygen saturation in 2020-03-20 16:20:00 98 /min University of Arterial blood by [employer] [place] Pulse oximetry Branch Procedures This patient has no known procedures. Encounters Start End Encounter Admission Attending Care Care Encounter Source Date/Time Date/Time Type Type Clinicians Facility Department ID 2020-03-20 2020-03-20 Emergency [facility] [id number] 11:23:42 11:59:00 Justine Munoz [id number] [place] [id number] [place] [id number] [facility] 2020-03-20 2020-03-20 Emergency [facility] [id number] Univers 11:23:42 11:59:00 Justine Munoz [id number] i ty of [place] [id number] [facility] [id number] [place] [address] Branch 2020-03-20 2020-03-[address] [facility] ERT [id number] Univers 11:23:42 11:23:42 JUSTINE rincon of [facility] Results This patient has no known results.
--- NOTE | 2022-02-10 13:08 | ER ---
Nurse's Notes [facility] Name: Tye Foreman Age: 31 yrs Sex: Male : 1990 Arrival Date: 02/10/2022 Time: 12:57 Bed Waiting Private MD: Diagnosis: Insect bite (nonvenomous) of right upper arm Presentation: 02/10 13:06 Chief complaint: Patient states: "I got bit by something I think on the back of my ab2 arm.". Coronavirus screen: Vaccine status: Patient reports receiving the 2nd dose of the covid vaccine. Client denies travel out of the [place] in the last 14 days. At this time, the client does not indicate any symptoms associated with coronavirus-19. Ebola Screen: Patient negative for fever greater than or equal to 101.5 degrees Fahrenheit, and additional compatible Ebola Virus Disease symptoms Patient denies exposure to infectious person. Patient denies travel to an Ebola-affected area in the 21 days before illness onset. No symptoms or risks identified at this time. Initial Sepsis Screen: Does the patient meet any 2 criteria? No. Patient's initial sepsis screen is negative. Does the patient have a suspected source of infection? No. Patient's initial sepsis screen is negative. Risk Assessment: Do you want to hurt yourself or someone else? Patient reports no desire to harm self or others. Onset of symptoms is unknown. 13:06 Method Of Arrival: Ambulatory ab2 13:06 Acuity: ADAM 4 ab2 Triage Assessment: 13:04 Bite description: bite sustained to right tricep by an unknown animal, animal ab2 information: vaccination(s) is unknown. General: Appears in no apparent distress. comfortable, Behavior is calm, cooperative, appropriate for age. Pain: Complains of pain in right tricep Pain currently is 2 out of 10 on a pain scale. EENT: No deficits noted. No signs and/or symptoms were reported regarding the EENT system. Neuro: No deficits noted. Level of Consciousness is awake, alert, obeys commands, Oriented to person, place, time, situation, Appropriate for age Medical Office Technology Instructor are equal bilaterally Moves all extremities. Gait is steady, Speech is normal, Facial symmetry appears normal. Cardiovascular: No deficits noted. Denies chest pain, shortness of breath, Heart tones S1 S2 present Patient's skin is warm and dry. Respiratory: Airway is patent Respiratory effort is even, unlabored, Respiratory pattern is regular, symmetrical. GI: No deficits noted. No signs and/or symptoms were reported involving the gastrointestinal system. : No deficits noted. No signs and/or symptoms were reported regarding the genitourinary system. Derm: Wound noted right tricep Wound is small blister secondary to insect bite. Musculoskeletal: No deficits noted. No signs and/or symptoms reported regarding the musculoskeletal system. Historical: - Allergies: 13:07 No Known Allergies; ab2 - Home Meds: 13: None [Active]; ab2 - PMHx: 13: Hypertension; ab2 - PSHx: 13:07 None; ab2 - Immunization history:: Adult Immunizations up to date. - Social history:: Smoking status: Patient reports the use of cigarette tobacco products, smokes one pack cigarettes per day. Screenin:07 Abuse screen: Denies threats or abuse. Denies injuries from another. Nutritional ab2 screening: No deficits noted. Tuberculosis screening: No symptoms or risk factors identified. Fall Risk None identified. Assessment: 13:07 Derm: Skin small blister noted Skin is pink, warm \\T\\ dry. ab2 Vital Signs: 13:06 BP 139 / 86; Pulse 82; Resp 17; Temp 98.0(TE); Pulse Ox 99% on R/A; Weight 92.99 kg; ab2 Height 6 ft. 8 in. (203.20 cm); Pain 2/10; 13:06 Body Mass Index 22.52 (92.99 kg, 203.20 cm) ab2 ED Course: 12:57 Patient arrived in ED. as 12:57 Pattie Gomez FNP-C is PHCP. kb 12:57 Kevin Iglesias MD is Attending Physician. kb 13:07 Triage completed. ab2 13:07 Arm band placed on right wrist. ab2 13:07 Patient has correct armband on for positive identification. Adult w/ patient. ab2 13:07 No provider procedures requiring assistance completed. Patient did not have IV access ab2 during this emergency room visit. Administered Medications: No medications were administered Outcome: 13:08 Discharge ordered by . kb 13:10 Discharged to home ambulatory. ab2 13:10 Condition: good 13:10 Discharge instructions given to patient, Instructed on discharge instructions, follow up and referral plans. Demonstrated understanding of instructions, follow-up care, Prescriptions given X 13:10 Patient left the ED. ab2 Signatures: Pattie Gomez, [employer] INTERN-Maricel Mccarthy Alexis ab2
--- NOTE | 2022-02-10 13:08 | EDPHYS ---
Physician Documentation [facility] Name: Tye Foreman Age: 31 yrs Sex: Male : 1990 Arrival Date: 02/10/2022 Time: 12:57 Bed Waiting Private MD: ED Physician Kevin Iglesias HPI: 02/10 13:17 This 31 yrs old Male presents to ER via Ambulatory with complaints of Itching - kb redness, Insect Bite. 13:17 The patient presents with itching, localized swelling, redness of skin. Onset: The kb symptoms/episode began/occurred 2 day(s) ago. Associated signs and symptoms: Pertinent positives: swelling. Possible causes: At home the patient or guardian has treated the symptoms with nothing. Severity of symptoms: At their worst the symptoms were very mild mild in the emergency department the symptoms are unchanged. The patient has not experienced similar symptoms in the past. The patient has not recently seen a physician. Pt reports he believes he was bitten or stung by an insect 2 days ago and wanted to get the area looked at. c/o itching to area, no pain. Historical: - Allergies: 13:07 No Known Allergies; ab2 - Home Meds: 13:07 None [Active]; ab2 - PMHx: 13:07 Hypertension; ab2 - PSHx: 13:07 None; ab2 - Immunization history:: Adult Immunizations up to date. - Social history:: Smoking status: Patient reports the use of cigarette tobacco products, smokes one pack cigarettes per day. ROS: 13:13 Constitutional: Negative for fever, chills, and weight loss. kb 13:13 Skin: Positive for erythema, of the right tricep. 13:13 All other systems are negative. Exam: 13:15 Constitutional: This is a well developed, well nourished patient who is awake, alert, kb and in no acute distress. Head/Face: Normocephalic, atraumatic. ENT: Moist Mucous membranes Respiratory: Respirations even and unlabored. No increased work of breathing. Talking in full sentences MS/ Extremity: Pulses equal, no cyanosis. Neurovascular intact. Full, normal range of motion. Neuro: Awake and alert, GCS 15, oriented to person, place, time, and situation. Moves all extremities. Normal gait. Psych: Awake, alert, with orientation to person, place and time. Behavior, mood, and affect are within normal limits. 13:15 Skin: Appearance: insect bite to right upper am. Vital Signs: 13:06 BP 139 / 86; Pulse 82; Resp 17; Temp 98.0(TE); Pulse Ox 99% on R/A; Weight 92.99 kg; ab2 Height 6 ft. 8 in. (203.20 cm); Pain 2/10; 13:06 Body Mass Index 22.52 (92.99 kg, 203.20 cm) ab2 MDM: 13:07 Patient medically screened. kb 13:13 Data reviewed: vital signs, nurses notes. Data interpreted: Pulse oximetry: on room air kb is 99 %. Interpretation: normal. Counseling: I had a detailed discussion with the patient and/or guardian regarding: the historical points, exam findings, and any diagnostic results supporting the discharge/admit diagnosis, the need for outpatient follow up, a family practitioner, to return to the emergency department if symptoms worsen or persist or if there are any questions or concerns that arise at home. Administered Medications: No medications were administered Disposition: 16:31 Co-signature as Attending Physician, Kevin Iglesias MD. rn Disposition Summary: 02/10/22 13:08 Discharge Ordered Location: Home kb Condition: Stable kb Diagnosis - Insect bite (nonvenomous) of right upper arm kb Followup: kb - With: Emergency Department - When: As needed - Reason: Worsening of condition Followup: kb - With: Private Physician - When: 2 - 3 days - Reason: Recheck today's complaints, Continuance of care, Re-evaluation by your physician Discharge Instructions: - Discharge Summary Sheet kb - Insect Bite, Adult, [id number]-ha-Loxj kb Forms: - Medication Reconciliation Form kb - Thank You Letter kb - Antibiotic Education kb - Prescription Opioid Use kb Signatures: Pattie Gomez FNP-C FNP-Kevin Palomino MD MD rn Melquiades Hay ab2
[2022-02-10 13:51] VITALS: BP 139/86; TEMP 98; O2SAT 99
== END 2022-02-10 13:10 | disposition home or self-care (01) ==
LOC: ER 12:54
DX: S40.861A Insect bite (nonvenomous) of right upper arm, initial encounter (principal); I10 Essential (primary) hypertension; F17.210 Nicotine dependence, cigarettes, uncomplicated
CPT/HCPCS: 99282

== ENCOUNTER 2022-06-29 08:53 | Emergency (ER) | payer SELFPAY ==
--- OUTSIDE RECORDS SUMMARY | 2022-06-29 08:57 | XMS REPORT | Continuity of Care Document ---
:1990 Author Organization [facility] t Address [address] [place] [address] Care Team Providers Name Role Phone Denise Dominguez Attending Clinician DENISE CHOWDHURY Attending Clinician Unavailable Problems Condition Condition Condition Status Onset Resolution Last Treating Co mments Source Name Details Category Date Date Treatment Clinician Date No known No known Disease Unive rs active active ity of problems problems [facility] Allergies, Adverse Reactions, Alerts Allergy Allergy Status Severity Reaction(s) Onset Inactive Treating Comm ents Source Name Type Date Date Clinician NO KNOWN Drug Active Univers ALLERGIE Class ity of S [facility] Social History Social Habit Start Date Stop Date Quantity Comments Source [facility] to [facility]-2 Not sure [facility] [place] (event) [facility] Smoking Status Start Date Stop Date Source Unknown if ever smoked Universit y of [facility] Medications Ordered Filled Start Stop Current Ordering Indication Dosage Frequency Signature Comments Components Source Medication Medication Date Date Medication? Clinician (SIG) Name Name ibuprofen 2020-0 Yes [id number] 800mg Take 1 Univers 800 mg 5-09 tablet by ity of tablet 00:00: mouth [place] 00 every 8 Medical (eight) Branch hours as needed for Pain (scale 4-6). chlorhexidi 2020-0 Yes [id number] 15mL Swish and Univers ne 0.12 % 5-09 spit out ity of mouthwash 00:00: 15 mL 2 [place] 00 (two) Medical times Branch daily. penicillin 2020-0 2020- No [id number] 500mg Take 1 Univers v potassium 5-09 05-20 tablet by it y of 500 mg 00:00: 04:59 mouth 4 [place] tablet 00 :00 (four) Medical times [place] daily for 10 days. Vital Signs Vital Name Observation Time Observation Value Comments Source Systolic blood 2020-03-20 16:20:00 121 mm[Hg] Univer sity of pressure [facility] Diastolic blood 2020-03-20 16:20:00 95 mm[Hg] Unive rsity of pressure [facility] Heart rate 2020-03-20 16:20:00 77 /min Universi ty of [facility] Body temperature 2020-03-20 16:20:00 35.94 Amy Univ ersity [facility] Respiratory rate 2020-03-20 16:20:00 16 /min Univ ersity [facility] Body height 2020-03-20 16:20:00 203.2 cm Universi ty of [facility] Body weight 2020-03-20 16:20:00 90.719 kg Universi ty of [facility] BMI 2020-03-20 16:20:00 21.97 kg/m2 Universi ty of [facility] Oxygen saturation in 2020-03-20 16:20:00 98 /min University of Arterial blood by [employer] Pulse oximetry Branch Systolic blood 2020-03-20 16:20:00 121 mm[Hg] Univer sity of [facility] Diastolic blood 2020-03-20 16:20:00 95 mm[Hg] Unive rsity of [facility] Heart rate 2020-03-20 16:20:00 77 /min Universi ty of [facility] Body temperature 2020-03-20 16:20:00 35.94 Amy Univ ersity [facility] Respiratory rate 2020-03-20 16:20:00 16 /min Univ ersity [facility] Body height 2020-03-20 16:20:00 203.2 cm Universi ty of [facility] Body weight 2020-03-20 16:20:00 90.719 kg [facility]i ty [facility] [place] [facility] [place] BMI 2020-03-20 16:20:00 21.97 kg/m2 Universi ty of [facility] Oxygen saturation in 2020-03-20 16:20:00 98 /min University of Arterial blood by [employer] Pulse oximetry Branch Procedures This patient has no known procedures. Encounters Start End Encounter Admission Attending Care Care Encounter Source Date/Time Date/Time Type Type Clinicians Facility Department ID 2020-03-20 2020-03-20 Emergency [facility] [id number] 11:23:42 11:59:00 Denise Munoz [id number] [place] [id number] Maria Stein [id number] [facility] 2020-03-20 2020-03-20 Emergency [facility] [id number] Univers 11:23:42 11:59:00 Denise Munoz [id number] i ty of [facility] [id number] [facility] [id number] [place] [address] Branch 2020-03-20 2020-03-20 Emergency X [facility] ERT [id number] Univers 11:23:42 11:23:42 DENISE rincon of [facility] Results This patient has no known results.
--- NOTE | 2022-06-29 11:01 | ER ---
Nurse's Notes [facility] Name: Tye Foreman Age: 31 yrs Sex: Male : 1990 Arrival Date: 06/29/2022 Time: 08:56 Bed 10 Private MD: Diagnosis: Streptococcal pharyngitis Presentation: 06/29 09:28 Chief complaint: Patient states: sore throat, headache, and cough that began 2 days ss ago. Pt reports that his significant other was recently diagnosed with strep. Coronavirus screen: Client denies travel out of the [place] in the last 14 days. Ebola Screen: Patient denies exposure to infectious person. Patient denies travel to an Ebola-affected area in the 21 days before illness onset. Initial Sepsis Screen: Does the patient meet any 2 criteria? No. Patient's initial sepsis screen is negative. Does the patient have a suspected source of infection? No. Patient's initial sepsis screen is negative. Risk Assessment: Do you want to hurt yourself or someone else? Patient reports no desire to harm self or others. Onset of symptoms was June 27, 2022. 09:28 Method Of Arrival: Ambulatory ss 09:28 Acuity: ADAM 4 ss Historical: - Allergies: 09:29 No Known Allergies; ss - Home Meds: 09:29 None [Active]; ss - PMHx: 09:29 Hypertension; ss - PSHx: 09:29 None; ss - Immunization history:: Client reports receiving the 2nd dose of the Covid vaccine. - Social history:: Smoking status: Reported history of juuling and/or vaping. Screenin:19 Abuse screen: Denies threats or abuse. Denies injuries from another. Nutritional ss screening: No deficits noted. Tuberculosis screening: Never had TB. Fall Risk None identified. Assessment: 11:19 Reassessment: Patient appears in no apparent distress at this time. Patient and/or ss family updated on plan of care and expected duration. Pain level reassessed. Patient is alert, oriented x 3, equal unlabored respirations, skin warm/dry/pink. Vital Signs: 09:28 Resp 15; Weight 92.99 kg; Height 6 ft. 7 in. (200.66 cm); Pain 1/10; ss 09:30 BP 143 / 92; Pulse 59; Resp 15; Temp 97.9(TE); Pulse Ox 100% ; ss 09:28 Body Mass Index 23.09 (92.99 kg, 200.66 cm) ED Course: 08:56 Patient arrived in ED. rg4 09:06 Reena King FNP is [facility]. jh7 09:07 Gael Middleton MD is Attending Physician. 7 09:29 Triage completed. 09:29 Arm band placed on right wrist. 11:11 Lilliam Casanova, RN is Primary Nurse. 11:19 Patient has correct armband on for positive identification. Bed in low position. Call ss light in reach. 11:20 No provider procedures requiring assistance completed. Patient did not have IV access ss during this emergency room visit. Administered Medications: No medications were administered Medication: 11:19 VIS not applicable for this client. Outcome: 11:00 Discharge ordered by . [facility] er 11:20 Discharged to home ambulatory. 11:20 Condition: good 11:20 Discharge instructions given to patient, Instructed on discharge instructions, follow up and referral plans. medication usage, Demonstrated understanding of instructions, follow-up care, medications, Prescriptions given X 1. 11:20 Patient left the ED. Signatures: Lilliam Casanova RN RN mary carmen Zaida Alas rg4 Reena King FNP [place] [id number]
--- NOTE | 2022-06-29 11:01 | EDPHYS ---
Physician Documentation [facility] Name: Tye Foreman Age: 31 yrs Sex: Male : 1990 Arrival Date: 06/29/2022 Time: 08:56 Bed 10 Private MD: THOMAS Physician Gael Middleton HPI: 06/29 09:40 This 31 yrs old Male presents to ER via Ambulatory with complaints of Sore Throat, jh7 Cough, Headache. 09:40 The patient presents with sore throat. Onset: The symptoms/episode began/occurred 2 jh7 day(s) ago. Associated signs and symptoms: Pertinent positives: cough, Body aches. Patient presents for sore throat, cough, and body aches for 2 days. Reports that his fiance currently has strep and just recovered from COVID.. Historical: - Allergies: 09:29 No Known Allergies; ss - Home Meds: 09:29 None [Active]; ss - PMHx: 09:29 Hypertension; ss - PSHx: 09:29 None; ss - Immunization history:: Client reports receiving the 2nd dose of the Covid vaccine. - Social history:: Smoking status: Reported history of juuling and/or vaping. ROS: 09:40 Constitutional: Negative for fever, chills, and weight loss, Neck: Negative for injury, jh7 pain, and swelling, Cardiovascular: Negative for chest pain, palpitations, and edema, Abdomen/GI: Negative for abdominal pain, nausea, vomiting, diarrhea, and constipation, Back: Negative for injury and pain, Skin: Negative for injury, rash, and discoloration, Neuro: Negative for headache, weakness, numbness, tingling, and seizure. 09:40 ENT: Positive for sore throat, Negative for ear pain, nasal discharge, sinus congestion. 09:40 Respiratory: Positive for cough, Negative for orthopnea, shortness of breath, wheezing. 09:40 All other systems are negative. Exam: 09:40 Constitutional: This is a well developed, well nourished patient who is awake, alert, jh7 and in no acute distress. Eyes: Pupils equal round and reactive to light, extra-ocular motions intact. Lids and lashes normal. Conjunctiva and sclera are non-icteric and not injected. Cornea within normal limits. Periorbital areas with no swelling, redness, or edema. Neck: Trachea midline, no thyromegaly or masses palpated, and no cervical lymphadenopathy. Supple, full range of motion without nuchal rigidity, or vertebral point tenderness. No Meningismus. Cardiovascular: Regular rate and rhythm with a normal S1 and S2. No gallops, murmurs, or rubs. Normal PMI, no JVD. No pulse deficits. Respiratory: Lungs have equal breath sounds bilaterally, clear to auscultation and percussion. No rales, rhonchi or wheezes noted. No increased work of breathing, no retractions or nasal flaring. Abdomen/GI: Soft, non-tender, with normal bowel sounds. No distension or tympany. No guarding or rebound. No evidence of tenderness throughout. Back: No spinal tenderness. No costovertebral tenderness. Full range of motion. Skin: Warm, dry with normal turgor. Normal color with no rashes, no lesions, and no evidence of cellulitis. Neuro: Awake and alert, GCS 15, oriented to person, place, time, and situation. Normal gait. 09:40 ENT: Nose: is normal, Posterior pharynx: erythema, that is moderate. Vital Signs: 09:28 Resp 15; Weight 92.99 kg; Height 6 ft. 7 in. (200.66 cm); Pain 1/10; ss 09:30 BP 143 / 92; Pulse 59; Resp 15; Temp 97.9(TE); Pulse Ox 100% ; ss 09:28 Body Mass Index 23.09 (92.99 kg, 200.66 cm) MDM: 09:26 Patient medically screened. [facility] 11:00 Differential diagnosis: pharyngitis, upper respiratory infection, viral syndrome. Data [facility] reviewed: vital signs, nurses notes, lab test result(s). Data interpreted: Pulse oximetry: is 100 %. Counseling: I had a detailed discussion with the patient and/or guardian regarding: the historical points, exam findings, and any diagnostic results supporting the discharge/admit diagnosis, to return to the emergency department if symptoms worsen or persist or if there are any questions or concerns that arise at home. 06/29 09:27 Order name: Strep; Complete Time: 10:58 [facility] 06/29 09:27 Order name: Flu; Complete Time: 10:58 [facility] 06/29 09:27 Order name: SARS-COV-2 RT PCR (Document "Date of Onset" if Symptomatic); Complete Time: [facility] 11:30 Administered Medications: No medications were administered Disposition Summary: 06/29/22 11:00 Discharge Ordered Location: Home [facility] Problem: new [facility] Symptoms: are unchanged [facility] Condition: Stable [facility] Diagnosis - Streptococcal pharyngitis [facility] Followup: [facility] - With: Private Physician - When: 2 - 3 days - Reason: Recheck today's complaints Discharge Instructions: - Discharge Summary Sheet [facility] - Strep Throat, Adult [facility] Forms: - Medication Reconciliation Form [facility] - Thank You Letter [facility] - Work release form ss - Antibiotic Education [facility] Prescriptions: - Amoxicillin 875 mg Oral Tablet - take 1 tablet by ORAL route every 12 hours for 10 days; 20 tablet; Refills: 0, jh7 Product Selection Permitted Signatures: Dispatcher [employer] Lilliam Yoder RN RN Reena Martino, TIMING INSPECTOR TIMING INSPECTOR [facility]
[2022-06-29 11:31] VITALS: BP 143/92; TEMP 97.9; O2SAT 100
== END 2022-06-29 11:20 | disposition home or self-care (01) ==
LOC: ER 08:53
DX: J02.0 Streptococcal pharyngitis (principal); Z20.822 Contact with and (suspected) exposure to COVID-19; I10 Essential (primary) hypertension
CPT/HCPCS: 87081; 87804; 99282; U0003

== ENCOUNTER 2023-07-03 12:05 | Emergency (ER) | payer SELFPAY ==
--- OUTSIDE RECORDS SUMMARY | 2023-07-03 12:08 | XMS REPORT | Continuity of Care Document ---
:1990 Author Organization [facility] t Address [address] [place] [address] Care Team Providers Name Role Phone Denise Dominguez Attending Clinician DENISE CHOWDHURY Attending Clinician Unavailable Problems Condition Condition Condition Status Onset Resolution Last Treating Co mments Source Name Details Category Date Date Treatment Clinician Date No known No known Disease Unive rs active active ity of problems problems [facility] Allergies, Adverse Reactions, Alerts Allergy Allergy Status Severity Reaction(s) Onset Inactive Treating Comm ents Source Name Type Date Date Clinician NO KNOWN Drug Active Univers ALLERGIE Class ity of S [facility] Social History Social Habit Start Date Stop Date Quantity Comments [facility] to [facility]2 Not sure [facility] [place] (event) [facility] Smoking Status Start Date Stop Date Source Unknown if ever smoked Universit y of [facility] Medications Ordered Filled Start Stop Current Ordering Indication Dosage Frequency Signature Comments Components Source Medication Medication Date Date Medication? Clinician (SIG) Name Name ibuprofen 2020-0 Yes [id number] 800mg Take 1 Univers 800 mg 5-09 tablet by ity of tablet 00:00: mouth [place] 00 every 8 Medical (eight) Branch hours as needed for Pain (scale 4-6). chlorhexidi 2020-0 Yes [id number] 15mL Swish and Univers ne 0.12 % 5-09 spit out ity of mouthwash 00:00: 15 mL 2 [place] 00 (two) Medical times Branch daily. penicillin 2020-0 2020- No [id number] 500mg Take 1 Univers v potassium 5-09 05-20 tablet by it y of 500 mg 00:00: 04:59 mouth 4 [place] tablet 00 :00 (four) Medical times [place] daily for 10 days. Vital Signs Vital Name Observation Time Observation Value Comments Source Systolic blood 2020-03-20 16:20:00 121 mm[Hg] Univer sity of pressure [facility] Diastolic blood 2020-03-20 16:20:00 95 mm[Hg] Unive rsity of pressure [facility] Heart rate 2020-03-20 16:20:00 77 /min Universi ty of [facility] Body temperature 2020-03-20 16:20:00 35.94 Amy Univ ersity [facility] [place] [place] Respiratory rate 2020-03-20 16:20:00 16 /min Univ ersity [facility] [place] [place] Body height 2020-03-20 16:20:00 203.2 cm Universi ty of [facility] Body weight 2020-03-20 16:20:00 90.719 kg Universi ty of [facility] BMI 2020-03-20 16:20:00 21.97 kg/m2 Universi ty of [facility] Oxygen saturation in 2020-03-20 16:20:00 98 /min University of Arterial blood by [employer] Pulse oximetry Branch Systolic blood 2020-03-20 16:20:00 121 mm[Hg] Univer sity of [facility] Diastolic blood 2020-03-20 16:20:00 95 mm[Hg] Unive rsity of [facility] Heart rate 2020-03-20 16:20:00 77 /min Universi ty of [facility] Body temperature 2020-03-20 16:20:00 35.94 Amy Univ ersity [facility] [place] [place] Respiratory rate 2020-03-20 16:20:00 16 /min Univ ersity [facility] [place] [place] Body height 2020-03-20 16:20:00 203.2 cm Universi ty of [facility] Body weight 2020-03-20 16:20:00 90.719 kg Universi ty of [place] Medical [place] BMI 2020-03-20 16:20:00 21.97 kg/m2 Universi ty of [facility] Oxygen saturation in 2020-03-20 16:20:00 98 /min University of Arterial blood by [place] Pulse oximetry Branch Procedures This patient has no known procedures. Encounters Start End Encounter Admission Attending Care Care Encounter Source Date/Time Date/Time Type Type Clinicians Facility Department ID 2022-08-10 Outpatient [facility] [id number] [facility] 13:01:28 1108 [facility] 2020-03-20 2020-03-20 Emergency [facility] [id number] Univers 11:23:42 11:59:00 Denise Munoz [id number] i ty of [place] [id number] [facility] [id number] [address] 2020-03-20 2020-03-20 Emergency [facility] [id number] 11:23:42 11:59:00 Denise Munoz [id number] Aaron [id number] [place] [id number] [facility] 2020-03-20 2020-03-20 Emergency X [facility] ERT [id number] Univers 11:23:42 11:23:42 DENISE rincon of [facility] Results This patient has no known results.
[2023-07-03 13:31] LABS: SARS-CoV-2 Antigen Rapid Res Positive (Negative)
--- NOTE | 2023-07-03 13:57 | EDPHYS ---
Physician Documentation [facility] Name: Tye Foreman Age: 32 yrs Sex: Male : 1990 Arrival Date: 07/03/2023 Time: 12:05 Bed 15 Private MD: ED Physician Gael Middleton HPI: 07/03 12:57 This 32 yrs old Male presents to ER via Ambulatory with complaints of Flu Symptoms, sb4 Insect Bite. 12:57 Onset: The symptoms/episode began/occurred 5 day(s) ago. Associated signs and symptoms: sb4 Pertinent positives: congestion, cough, nasal discharge, sore throat, Pertinent negatives: chest pain. Modifying factors: The patient symptoms are alleviated by nothing, the patient symptoms are aggravated by nothing. The patient has not experienced similar symptoms in the past. patient states he started feeling chills/body aches on and a few days ago he noticed what he thought was an insect bite on his left thigh that has increased in redness. he wasn't sure if they were related. his boss wanted him to be tested for covid. Historical: - Allergies: 12:57 Bees; aa5 12:57 Pollen; aa5 - PMHx: 12:23 Hypertension; aa5 - Immunization history:: Adult Immunizations unknown. - Social history:: Smoking status: Reported history of juuling and/or vaping. ROS: 12:57 Eyes: Negative for injury, pain, redness, and discharge, Cardiovascular: Negative for sb4 chest pain, palpitations, and edema, Abdomen/GI: Negative for abdominal pain, nausea, vomiting, diarrhea, and constipation, Back: Negative for injury and pain, MS/Extremity: Negative for injury and deformity. 12:57 Constitutional: Positive for body aches, chills. 12:57 ENT: Positive for sinus congestion, sore throat. 12:57 Respiratory: Positive for cough. 12:57 Skin: Positive for insect bite left thigh. 12:57 All other systems are negative. Exam: 13:54 Constitutional: This is a well developed, well nourished patient who is awake, alert, sb4 and in no acute distress. Head/Face: Normocephalic, atraumatic. Eyes: Extra-ocular motions intact. Periorbital areas with no swelling, redness, or edema. ENT: Mucous membranes moist. Cardiovascular: Regular rate and rhythm with a normal S1 and S2. Respiratory: Lungs have equal breath sounds bilaterally, clear to auscultation and percussion. No rales, rhonchi or wheezes noted. No increased work of breathing, no retractions or nasal flaring. Abdomen/GI: Soft, non-tender, no distension. Back: No spinal tenderness. No costovertebral tenderness. Full range of motion. MS/ Extremity: Pulses equal, no cyanosis. Neurovascular intact. Full, normal range of motion. Neuro: Awake and alert, GCS 15, oriented to person, place, time, and situation. Cranial nerves II-XII grossly intact. Motor strength 5/5 in all extremities. Sensory grossly intact. Cerebellar exam normal. Normal gait. 13:54 Skin: abscess, that is small, approximately 3 cm(s), with induration, with surrounding cellulitis. Vital Signs: 12:23 BP 128 / 92; Pulse 103; Resp 18 S; Temp 98(TE); Pulse Ox 100% on R/A; Weight 90.72 kg aa5 (R); Height 6 ft. 7 in. (R); 12:23 Body Mass Index 22.53 (90.72 kg, 200.66 cm) aa5 MDM: 12:11 Patient medically screened. sb4 13:54 Differential diagnosis: viral Infection, bacterial infection, URI, bronchitis, abscess, sb4 cellulitis, covid. flu. Data reviewed: vital signs, nurses notes, lab test result(s), and as a result, I will discharge patient. Counseling: I had a detailed discussion with the patient and/or guardian regarding the historical points, exam findings, and any diagnostic results supporting the discharge/admit diagnosis, the presence of at least one elevated blood pressure reading (>120/80) during this emergency department visit, lab results, to return to the emergency department if symptoms worsen or persist or if there are any questions or concerns that arise at home. 07/03 12:26 Order name: SARS RAPID; Complete Time: 13:32 sb4 07/03 12:26 Order name: Flu; Complete Time: 13:37 sb4 Administered Medications: No medications were administered Disposition Summary: 07/03/23 13:56 Discharge Ordered Location: Home sb4 Problem: new sb4 Symptoms: are unchanged sb4 Condition: Stable sb4 Diagnosis - SARS-associated coronavirus as the cause of diseases classified elsewhere sb4 - Cutaneous abscess of left lower limb sb4 Followup: sb4 - With: Private Physician - When: As needed - Reason: Recheck today's complaints, Continuance of care, Re-evaluation by your physician Discharge Instructions: - Skin Abscess sb4 - COVID-19 sb4 - Discharge Summary Sheet mb9 Forms: - Medication Reconciliation Form sb4 - Thank You Letter sb4 - Antibiotic Education sb4 - Prescription Opioid Use sb4 - Patient Portal Instructions sb4 - Leadership Thank You Letter sb4 - Work release form mb9 Prescriptions: - Cephalexin 500 mg Oral Capsule - take 1 capsule by ORAL route every 8 hours for 10 days; 30 capsule; Refills: 0, sb4 Product Selection Permitted Signatures: Dispatcher [employer] Tri Galo RN RN aa5 Melinda Leach PA-C PA-C sb4 Corrections: (The following items were deleted from the chart) 12:58 12:57 Allergies: No Known Allergies; dena fernandes
--- NOTE | 2023-07-03 13:57 | ER ---
Nurse's Notes [facility] Name: Tye Foreman Age: 32 yrs Sex: Male : 1990 Arrival Date: 07/03/2023 Time: 12:05 Bed 15 Private MD: Diagnosis: SARS-associated coronavirus as the cause of diseases classified elsewhere;Cutaneous abscess of left lower limb Presentation: 07/03 12:23 Chief complaint: Patient states: "I have flu symptoms and I also have like a spider aa5 bite on my leg". Pt reports chills, runny nose, cough, sore throat, and nausea since . Coronavirus screen: chills, cough unrelated to allergies, runny nose. Ebola Screen: Patient denies travel to an Ebola-affected area in the 21 days before illness onset. Initial Sepsis Screen: Does the patient meet any 2 criteria? HR > 90 bpm. Does the patient have a suspected source of infection? Yes:. Risk Assessment: Do you want to hurt yourself or someone else? Patient reports no desire to harm self or others. Onset of symptoms was June 2023. 12:23 Acuity: ADAM 4 aa5 12:23 Method Of Arrival: Ambulatory aa5 Triage Assessment: 13:52 Bite description: animal information: vaccination(s). mb9 Historical: - Allergies: 12:57 Bees; aa5 12:57 Pollen; aa5 - PMHx: 12:23 Hypertension; aa5 - Immunization history:: Adult Immunizations unknown. - Social history:: Smoking status: Reported history of juuling and/or vaping. Screenin:49 [facility] ED Fall Risk Assessment (Adult) History of falling in the last 3 months, mb9 including since admission No falls in past 3 months (0 pts) Confusion or Disorientation No (0 pts) Intoxicated or Sedated No (0 pts) Impaired Gait No (0 pts) Mobility Assist Device Used No (0 pt) Altered Elimination No (0 pt) Score/Fall Risk Level 0 - 2 = Low Risk Oriented to surroundings, Maintained a safe environment, Educated pt \\T\\ family on fall prevention, incl call for assistance when getting out of bed. Abuse screen: Denies threats or abuse. Nutritional screening: No deficits noted. Tuberculosis screening: No symptoms or risk factors identified. Assessment: 13:48 Reassessment: pt brought back to ER room. mb9 13:51 General: Appears uncomfortable, Behavior is cooperative. Neuro: [place] mb9 Agitation-Sedation Scale (RASS): 0 - Alert and Calm Level of Consciousness is awake, alert, obeys commands, Oriented to person, place, time, situation, Appropriate for age. Cardiovascular: Patient's skin is warm and dry. Respiratory: Reports cough that is. : No signs and/or symptoms were reported regarding the genitourinary system. EENT: Reports nasal congestion. Derm: Skin is pink, warm \\T\\ dry. Vital Signs: 12:23 BP 128 / 92; Pulse 103; Resp 18 S; Temp 98(TE); Pulse Ox 100% on R/A; Weight 90.72 kg aa5 (R); Height 6 ft. 7 in. (R); 12:23 Body Mass Index 22.53 (90.72 kg, 200.66 cm) aa5 ED Course: 12:07 Patient arrived in ED. rg4 12:10 Melinda Leach PA-C is PHCP. sb4 12:10 Gael Middleton MD is Attending Physician. sb4 12:23 Arm band placed on. aa5 12:25 Triage completed. aa5 13:48 Sunshine Del Cid, KORINA is Primary Nurse. mb9 13:49 Placed in gown. Bed in low position. Call light in reach. Side rails up X 1. Client mb9 placed on continuous cardiac and pulse oximetry monitoring. NIBP monitoring applied. 13:49 No provider procedures requiring assistance completed. mb9 13:52 Patient did not have IV access during this emergency room visit. mb9 Administered Medications: No medications were administered Medication: 13:49 VIS not applicable for this client. mb9 Outcome: 13:56 Discharge ordered by . sb4 14:05 Discharged to home ambulatory. mb9 14:05 Condition: stable 14:05 Discharge instructions given to patient, Instructed on discharge instructions, follow up and referral plans. Demonstrated understanding of instructions, follow-up care, medications, Prescriptions given X 1. 14:05 Patient left the ED. mb9 Signatures: Tri Alexis RN RN aa5 Zaida Alas rg4 Melinda Leach PA-C PA-C sb4 Breneman, Mary Beth, RN RN mb9 Corrections: (The following items were deleted from the chart) 12:58 12:57 Allergies: No Known Allergies; aa5 aa5
[2023-07-03 14:34] VITALS: BP 128/92; TEMP 98; O2SAT 100
== END 2023-07-03 14:05 | disposition home or self-care (01) ==
LOC: ER 12:05
DX: U07.1 COVID-19 (principal); L02.416 Cutaneous abscess of left lower limb
CPT/HCPCS: 36415; 87804; 87811; 99283

== ENCOUNTER → 2024-01-06 | Emergency (ER) | payer SELFPAY ==
[~2024-01-06] MED LIST: FAMOTIDINE 20 MG/2 ML VIAL IV ONE; MORPHINE 2 MG/ML SYR ONE; NA CHLORIDE 0.9% 1,000 ML ONE; ONDANSETRON 4 MG/2 ML VIAL ONE
--- OUTSIDE RECORDS SUMMARY | 2024-01-06 15:53 | XMS REPORT | Continuity of Care Document ---
Author Name Unknown Address [address] [address] [place] [address] [facility] thconnect Address [address] [address] [place] [address] Care Team Providers Care Oil Scout Name Role Phone Denise Dominguez Attending Clinician [phone] DENISE CHOWDHURY Attending Clinician Unavailable Problems Condition Name Condition Details Condition Category Status Onset Date Resolution Date Last Treatment Date Treating Clinician Comments Source No known active problems No known active problems Disease [facility] Allergies, Adverse Reactions, Alerts Allergy Name Allergy Type Status Severity Reaction(s) Onset Date Inactive Date Treating Clinician Comments Source NO KNOWN ALLERGIE S Drug Class Active [facility] Social History Social Habit Start Date Stop Date Quantity Comments Source Sex Assigned At [facility] Exposure to SARS-CoV-2 (event) Not sure [facility] Smoking Status Start Date Stop Date Source Unknown if ever smoked [facility] Medications Ordered Medication Name Filled Medication Name Start Date Stop Date Current Medication? Ordering Clinician Indication Dosage Frequency Signature (SIG) Comments Components Source ibuprofen 800 mg tablet 03-20 00:00: 00 Yes [id number] 800mg Take 1 tablet by mouth every 8 (eight) hours as needed for Pain (scale 4-6). [facility] chlorhexidi ne 0.12 % mouthwash 03-20 00:00: 00 Yes [id number] 15mL Swish and spit out 15 mL 2 (two) times daily. [facility] penicillin v potassium 500 mg tablet 03-20 00:00: 00 03-31 04:59 :00 No [id number] 500mg Take 1 tablet by mouth 4 (four) times daily for 10 days. [facility] Vital Signs Vital Name Observation Time Observation Value Salvador grajeda Systolic blood pressure 2020-03-20 16:20:00 121 mm[Hg] [facility] Diastolic blood pressure 2020-03-20 16:20:00 95 mm[Hg] [facility] Heart rate 2020-03-20 16:20:00 77 /min Unive [facility] Body temperature 2020-03-20 16:20:[address] [facility] Respiratory rate 2020-03-20 16:20:00 16 /min [facility] Body height 2020-03-20 16:20:00 203.2 cm Univ [facility] Body weight 2020-03-20 16:20:00 90.719 kg Univ [facility] BMI 2020-03-20 16:20:00 21.97 kg/m2 [facility] Oxygen saturation in Arterial blood by Pulse oximetry 2020-03-20 16:20:00 98 /min [facility] Systolic blood pressure 2020-03-20 16:20:00 121 mm[Hg] [facility] Diastolic blood pressure 2020-03-20 16:20:00 95 mm[Hg] [facility] Heart rate 2020-03-20 16:20:00 77 /min Unive [facility] Body temperature 2020-03-20 16:20:[address] [facility] Respiratory rate 2020-03-20 16:20:00 16 /min [facility] Body height 2020-03-20 16:20:00 203.2 cm Univ [facility] Body weight 2020-03-20 16:20:00 90.719 kg [facility] BMI 2020-03-20 16:20:00 21.97 kg/m2 Univ [facility] Oxygen saturation in Arterial blood by Pulse oximetry 2020-03-20 16:20:00 98 /min [facility] Encounters Start Date/Time End Date/Time Encounter Type Admission Type Attending Clinicians Care Facility Care Department Encounter ID Source 2022-08-10 13:01:28 Outpatient [facility] [id number] [facility] 2020-03-20 11:23:42 2020-03-20 11:59:00 Emergency [place] Denise Estrada [facility] [id number] [facility] 2020-03-20 11:23:42 2020-03-20 11:59:00 Emergency [place] Denise Estrada [facility] [id number] 2020-03-20 11:23:42 2020-03-20 11:23:42 Emergency X DENISE CHOWDHURY [facility] E[facility] [id number] [facility]
[2024-01-06 17:41] LABS: Absolute Lymphocytes (CBC) 2.4 K/uL (0.7-4.9); Hematocrit 41.1 % (39.6-49.0); Lymphocytes % 22.3 % (15.3-44.8); MCV 92.8 fL (80-100); MPV 6.8 fL (7.6-11.3); Platelets 331 thou/uL (152-406); RBC Red Blood Cell Count 4.42 M/uL (4.33-5.43)
[2024-01-06 17:43] LABS: Specific Gravity 1.019 (1.005-1.030); Urine Bacteria None Seen /HPF (<20); Urine Bilirubin NEGATIVE (Negative); Urine Blood 2+ (Negative); Urine Clarity Clear (Clear); Urine Color Light-Yellow (Yellow); Urine Glucose NEGATIVE (Negative); Urine Mucus Slight /HPF (None Seen); Urine Protein NEGATIVE (Negative); Urine RBC 21-50 /HPF (None Seen); Urine Urobilinogen Normal (Normal); Urine pH 5.5 (5.0-7.0)
[2024-01-06 17:48] LABS: Albumin 4.3 g/dL (3.4-5.0); Bilirubin Total 0.8 mg/dL (0.2-1.0); Potassium 3.8 mEq/L (3.5-5.1); Protein, Total 7.8 g/dL (6.4-8.2)
--- NOTE | 2024-01-06 18:47 | RAD REPORT ---
EXAM DESCRIPTION: CT - Abdomen Pelvis W Contrast - 01/06/2024 6:26 pm CLINICAL HISTORY: Abdominal pain COMPARISON: none. TECHNIQUE: Computed axial tomography of the abdomen pelvis was obtained. 100 cc Isovue-300 was admin istered intravenously. Oral contrast was not requested which limits evaluation of bowel and appendix All CT scans are performed using dose optimization technique as appropriate and may include automated exposure control or mA/KV adjustment according to patient size. FINDINGS: The liver, spleen, pancreas, adrenal and kidneys appear unremarkable. There is no evidence of diverticulitis. Normal appendix Small umbilical hernia. Slight posterior subluxation of L5 on S1 IMPRESSION: No acute abnormality is displayed.
--- NOTE | 2024-01-06 18:49 | EDPHYS ---
Physician Documentation [facility] Name: Tye Foreman Age: 33 yrs Sex: Male : 1990 Arrival Date: 01/06/2024 Time: 15:49 Bed 17 Private MD: ED Physician Gael Middleton HPI: 01/06 18:09 This 33 yrs old Male presents to ER via Ambulatory with complaints of handy Abdominal Pain, Nausea/Vomiting. 18:09 The patient presents to the emergency department with nausea, vomiting, that is handy intermittent. Onset: The symptoms/episode began/occurred 2 day(s) ago. Possible causes: unknown. The symptoms are aggravated by nothing. The symptoms are alleviated by nothing. Associated signs and symptoms: The patient has no apparent associated signs or symptoms. Severity of symptoms: At their worst the symptoms were moderate in the emergency department the symptoms are unchanged. The patient has not experienced similar symptoms in the past. Historical: - Allergies: 16:02 Bees; nj1 16:02 Pollen; nj1 - PMHx: 16:02 None; nj1 - Immunization history:: Client reports receiving the 2nd dose of the Covid vaccine. - Social history:: Smoking status: Reported history of juuling and/or vaping. ROS: 18:10 Constitutional: Negative for fever, chills, and weight loss, Eyes: Negative for injury, handy pain, redness, and discharge, ENT: Negative for injury, pain, and discharge, Neck: Negative for injury, pain, and swelling, Cardiovascular: Negative for chest pain, palpitations, and edema, Respiratory: Negative for shortness of breath, cough, wheezing, and pleuritic chest pain, : Negative for injury, bleeding, discharge, and swelling, MS/Extremity: Negative for injury and deformity, Skin: Negative for injury, rash, and discoloration, Neuro: Negative for headache, weakness, numbness, tingling, and seizure, Psych: Negative for depression, anxiety, suicide ideation, homicidal ideation, and hallucinations, Allergy/Immunology: Negative for hives, rash, and allergies, Endocrine: Negative for neck swelling, polydipsia, polyuria, polyphagia, and marked weight changes, Hematologic/Lymphatic: Negative for swollen nodes, abnormal bleeding, and unusual bruising, 18:10 Abdomen/GI: Positive for nausea and vomiting, Negative for abdominal pain, 18:10 Back: Positive for pain at rest, of the left mid back and right mid back, Exam: 18:10 Constitutional: This is a well developed, well nourished patient who is awake, alert, handy and in no acute distress. Head/Face: Normocephalic, atraumatic. Eyes: Pupils equal round and reactive to light, extra-ocular motions intact. Lids and lashes normal. Conjunctiva and sclera are non-icteric and not injected. Cornea within normal limits. Periorbital areas with no swelling, redness, or edema. ENT: Nares patent. No nasal discharge, no septal abnormalities noted. Tympanic membranes are normal and external auditory canals are clear. Oropharynx with no redness, swelling, or masses, exudates, or evidence of obstruction, uvula midline. Mucous membranes moist. Neck: Trachea midline, no thyromegaly or masses palpated, and no cervical lymphadenopathy. Supple, full range of motion without nuchal rigidity, or vertebral point tenderness. No Meningismus. Chest/axilla: Normal chest wall appearance and motion. Nontender with no deformity. No lesions are appreciated. Cardiovascular: Regular rate and rhythm with a normal S1 and S2. No gallops, murmurs, or rubs. Normal PMI, no JVD. No pulse deficits. Respiratory: Lungs have equal breath sounds bilaterally, clear to auscultation and percussion. No rales, rhonchi or wheezes noted. No increased work of breathing, no retractions or nasal flaring. Abdomen/GI: Soft, non-tender, with normal bowel sounds. No distension or tympany. No guarding or rebound. No evidence of tenderness throughout. Back: No spinal tenderness. No costovertebral tenderness. Full range of motion. Male : Normal genitalia with no discharge or lesions. Skin: Warm, dry with normal turgor. Normal color with no rashes, no lesions, and no evidence of cellulitis. MS/ Extremity: Pulses equal, no cyanosis. Neurovascular intact. Full, normal range of motion. Neuro: Awake and alert, GCS 15, oriented to person, place, time, and situation. Cranial nerves II-XII grossly intact. Motor strength 5/5 in all extremities. Sensory grossly intact. Cerebellar exam normal. Normal gait. Psych: Awake, alert, with orientation to person, place and time. Behavior, mood, and affect are within normal limits. Vital Signs: 15:58 BP 110 / 78; Pulse 66; Resp 18; Temp 98.9(O); Pulse Ox 100% ; Weight 90.72 kg; Height 6 nj1 ft. 8 in. ; Pain 3/10; 19:00 BP 141 / 82; Pulse 69; Resp 16 S; Pulse Ox 100% on R/A; jw7 19:30 BP 145 / 86; Pulse 68; Resp 16 S; Pulse Ox 99% on R/A; jw7 15:58 Body Mass Index 21.97 (90.72 kg, 203.2 cm) nj1 15:58 Pain Scale: Adult nj1 MDM: 16:27 Patient medically screened. [facility] 18:12 Differential diagnosis: Nonspecific abd pain, gastritis, cholecystitis, pancreatitis, handy appendicitis, diverticulitis, viral gastroenteritis, gastroenteritis. Data reviewed: vital signs, nurses notes, lab test result(s), EKG, radiologic studies, CT scan, plain films. Consideration of Admission/Observation Patient was admitted/placed on observation. Escalation of care including admission/observation considered. I considered the following discharge prescriptions or medication management in the emergency department Medications were administered in the Emergency Department. See MAR. Independent interpretation of the following test(s) in the Emergency Department CT Scan: My interpretation is CT ABD / PELVIS. Test considered but Not performed: EKG: NO EKG. Historians other than the Patient: PATIENT WELL INFORMED. Care significantly affected by the following chronic conditions: NONE. Counseling: I had a detailed discussion with the patient and/or guardian regarding the historical points, exam findings, and any diagnostic results supporting the discharge/admit diagnosis, lab results, radiology results, the need for outpatient follow up, for definitive care, a family practitioner. 01/06 16:52 Order name: CBC with Diff; Complete Time: 18:[address] [facility] 01/06 16:52 Order name: CMP; Complete Time: 18:[address] [facility] 01/06 16:52 Order name: Lipase; Complete Time: 18:[address] [facility] 01/06 16:52 Order name: Urinalysis w/ reflexes; Complete Time: 18:[address] [facility] 01/06 16:52 Order name: CT Abd/Pelvis - IV Contrast Only; Complete Time: 18:[address] [facility] 01/06 16:52 Order name: IV Saline Lock; Complete Time: 17:[address] [facility] 01/06 16:52 Order name: Labs collected and sent; Complete Time: 17: handy Administered Medications: 17:45 Drug: NS 0.9% IV 1000 ml IV at 1 bolus Per protocol; 1000 mL bolus Route: IV; Rate: 1 hb bolus; Site: right antecubital; 19:44 Follow up: Response: No adverse reaction; IV Status: Completed infusion; IV Intake: jw7 1000ml 17:45 Drug: Famotidine IVP 20 mg IVP once; dilute with 10 mL 0.9% NaCl; give over 2 minutes hb Route: IVP; Site: right antecubital; 19:44 Follow up: Response: No adverse reaction; Marked relief of symptoms jw7 17:45 Drug: Ondansetron IVP 4 mg IVP once; over 2 minutes Route: IVP; Site: right antecubital;hb 19:44 Follow up: Response: No adverse reaction; Marked relief of symptoms jw7 17:47 Drug: morphine IVP or IV 2 mg IVP once over 4 mins Route: IVP; Infused Over: 4 mins; hb Site: right antecubital; 19:44 Follow up: Response: No adverse reaction; Marked relief of symptoms jw7 18:42 Drug: NS 0.9% IV 1000 ml IV at 1 bolus Per protocol; 1000 mL bolus Route: IV; Rate: 1 kc6 bolus; Site: right antecubital; 19:43 Follow up: Response: No adverse reaction; IV Status: Completed infusion; IV Intake: jw7 1000ml Disposition Summary: 01/06/24 18:48 Discharge Ordered Notes: Location: Home handy Problem: new handy Symptoms: have improved handy Condition: Stable handy Diagnosis - Vomiting handy - Weakness handy Followup: handy - With: Private Physician - When: 2 - 3 days - Reason: Recheck today's complaints, Continuance of care, Re-evaluation by your physician Discharge Instructions: - Discharge Summary Sheet handy - Weakness handy - Weakness, [id number] handy - Vomiting, Adult handy Forms: - Medication Reconciliation Form handy - Thank You Letter handy - Antibiotic Education handy - Prescription Opioid Use handy - Patient Portal Instructions handy - Leadership Thank You Letter handy - Work release form jw7 Prescriptions: - ondansetron 4 mg Oral Tablet,disintegrating - take 1 tablet ORAL route every 6-8 hours for 5 days; 20 tablet; Refills: 0, handy Product Selection Permitted Signatures: Dispatcher [employer] Gael Acuna MD MD cha Baxter, Heather RN RN Tarsha Ruffin RN RN kc6 Anne Salgado RN RN nj1 Elizabeth Nuñez RN jw7 Corrections: (The following items were deleted from the chart) 16:03 16:02 PMHx: Hypertension; nj1 nj1
--- NOTE | 2024-01-06 18:49 | ER ---
Nurse's Notes [facility] Name: Tye Foreman Age: 33 yrs Sex: Male : 1990 Arrival Date: 01/06/2024 Time: 15:49 Bed 17 Private MD: Diagnosis: Vomiting;Weakness Presentation: 01/06 15:58 Chief complaint: Patient states: Abdominal pain along with nausea and vomiting for 3 nj1 days, not better. Pain radiating to back. Denies dysuria. Denies nausea at this moment. Able to keep fluids/food down. Coronavirus screen: Vaccine status: Patient reports receiving the 2nd dose of the covid vaccine. Ebola Screen: Patient denies travel to an Ebola-affected area in the 21 days before illness onset. Initial Sepsis Screen: Does the patient meet any 2 criteria? No. Patient's initial sepsis screen is negative. Does the patient have a suspected source of infection? No. Patient's initial sepsis screen is negative. Risk Assessment: Do you want to hurt yourself or someone else? Patient reports no desire to harm self or others. Onset of symptoms was January 03, 2024. 15:58 Method Of Arrival: Ambulatory nj1 15:58 Acuity: ADAM 3 nj1 Historical: - Allergies: 16:02 Bees; nj1 16:02 Pollen; nj1 - PMHx: 16:02 None; nj1 - Immunization history:: Client reports receiving the 2nd dose of the Covid vaccine. - Social history:: Smoking status: Reported history of juuling and/or vaping. Screenin:45 [facility] ED Fall Risk Assessment (Adult) Score/Fall Risk Level 0 - 2 = Low Risk hb Oriented to surroundings, Maintained a safe environment, Educated pt \T\ family on fall prevention, incl call for assistance when getting out of bed. Abuse screen: Denies threats or abuse. Denies injuries from another. Nutritional screening: No deficits noted. Tuberculosis screening: No symptoms or risk factors identified. Assessment: 17:45 General: Appears in no apparent distress. Behavior is calm, cooperative. Pain: Pain hb currently is 4 out of 10 on a pain scale. Neuro: Level of Consciousness is awake, alert, obeys commands, Oriented to person, place, time, situation. Cardiovascular: Patient's skin is warm and dry. Respiratory: Airway is patent Respiratory effort is even, unlabored, Respiratory pattern is regular, symmetrical. GI: Reports lower abdominal pain, upper abdominal pain, nausea. : No signs and/or symptoms were reported regarding the genitourinary system. EENT: No signs and/or symptoms were reported regarding the EENT system. Derm: Skin is pink, warm \T\ dry. Musculoskeletal: No signs and/or symptoms reported regarding the musculoskeletal system. 19:00 General: Appears in no apparent distress. comfortable, Behavior is calm, cooperative. jw7 Pain: Denies pain. Neuro: Level of Consciousness is awake, alert, obeys commands, Oriented to person, place, time, situation. Cardiovascular: Heart tones S1 S2 present Capillary refill < 3 seconds Patient's skin is warm and dry. Respiratory: Airway is patent Trachea midline Respiratory effort is even, unlabored, Respiratory pattern is regular, symmetrical. GI: Abdomen is flat, non-distended, Bowel sounds present X 4 quads. Abd is soft and non tender X 4 quads. : No deficits noted. No signs and/or symptoms were reported regarding the genitourinary system. EENT: No deficits noted. No signs and/or symptoms were reported regarding the EENT system. Derm: Skin is intact, is healthy with good turgor, Skin is dry, Skin is normal, Skin temperature is warm. Musculoskeletal: Circulation, motion, and sensation intact. Range of motion: intact in all extremities. Vital Signs: 15:58 BP 110 / 78; Pulse 66; Resp 18; Temp 98.9(O); Pulse Ox 100% ; Weight 90.72 kg; Height 6 nj1 ft. 8 in. ; Pain 3/10; 19:00 BP 141 / 82; Pulse 69; Resp 16 S; Pulse Ox 100% on R/A; jw7 19:30 BP 145 / 86; Pulse 68; Resp 16 S; Pulse Ox 99% on R/A; jw7 15:58 Body Mass Index 21.97 (90.72 kg, 203.2 cm) nd1 15:58 Pain Scale: Adult [facility] ED Course: 15:52 Patient arrived in ED. mr 16:01 Triage completed. nj1 16:03 Arm band placed on left wrist. nj1 16:27 Gael Middleton MD is Attending Physician. handy 17:23 CBC with Diff Sent. bc6 17:23 CMP Sent. bc6 17:23 Lipase Sent. bc6 17:23 Inserted saline lock: 20 gauge in right antecubital area, using aseptic technique. bc6 Blood collected. 17:34 CBC with Diff Sent. hb 17:34 CMP Sent. hb 17:34 Lipase Sent. hb 17:34 Urinalysis w/ reflexes Sent. hb 17:45 Patient has correct armband on for positive identification. Provided Education on: hb medications, tests, result times. 18:18 Tarsha Rosado, RN is Primary Nurse. [facility] 18:27 CT Abd/Pelvis - IV Contrast Only In Process Unspecified. EDMS 19:43 No provider procedures requiring assistance completed. IV discontinued, intact, jw7 bleeding controlled, No redness/swelling at site. Pressure dressing applied. Administered Medications: 17:45 Drug: NS 0.9% IV 1000 ml IV at 1 bolus Per protocol; 1000 mL bolus Route: IV; Rate: 1 hb bolus; Site: right antecubital; 19:44 Follow up: Response: No adverse reaction; IV Status: Completed infusion; IV Intake: jw7 1000ml 17:45 Drug: Famotidine IVP 20 mg IVP once; dilute with 10 mL 0.9% NaCl; give over 2 minutes hb Route: IVP; Site: right antecubital; 19:44 Follow up: Response: No adverse reaction; Marked relief of symptoms jw7 17:45 Drug: Ondansetron IVP 4 mg IVP once; over 2 minutes Route: IVP; Site: right antecubital;hb 19:44 Follow up: Response: No adverse reaction; Marked relief of symptoms jw7 17:47 Drug: morphine IVP or IV 2 mg IVP once over 4 mins Route: IVP; Infused Over: 4 mins; hb Site: right antecubital; 19:44 Follow up: Response: No adverse reaction; Marked relief of symptoms jw7 18:42 Drug: NS 0.9% IV 1000 ml IV at 1 bolus Per protocol; 1000 mL bolus Route: IV; Rate: 1 kc6 bolus; Site: right antecubital; 19:43 Follow up: Response: No adverse reaction; IV Status: Completed infusion; IV Intake: jw7 1000ml Medication: 17:45 VIS not applicable for this client. hb Intake: 19:43 IV: 1000ml; Total: 1000ml. jw7 19:44 IV: 1000ml; Total: 2000ml. jw7 Outcome: 18:48 Discharge ordered by . handy 19:43 Discharged to home ambulatory, jw7 19:43 Condition: stable 19:43 Discharge instructions given to patient, Instructed on discharge instructions, follow up and referral plans. medication usage, Demonstrated understanding of instructions, follow-up care, medications, Prescriptions given X 1, 19:44 Patient left the ED. jw7 Signatures: Dispatcher [employer] EDMS Gael Middleton MD MD cha Rivera, Sunshine, Reg Reg mr Jose RJoselyn, RN RN Elizabeth Nuñez RN RN jw7 Tarsha Rosado RN RN kc6 Stephany Beltre Norma RN RN nj1 Corrections: (The following items were deleted from the chart) 16:03 16:02 PMHx: Hypertension; nj1 nj1
[2024-01-06 20:12] VITALS: BP 145/86; TEMP 98.9; O2SAT 99
== END ==
LOC: ER 15:49
DX: R11.10 Vomiting, unspecified (principal); R53.1 Weakness
CPT/HCPCS: 36415; 74177; 80053; 81001; 83690; 85025; 96361; 96374; 96375; 99284; J2270; J2405; J7030; Q9967